=== PATIENT | female | born 1985 | race Caucasian/White ===

== ENCOUNTER → 2019-03-25 11:22 | Outpatient (CLI) | payer BC, SELFPAY ==
--- NOTE | 2019-03-25 11:25 | DI.RAD.S_ITS ---
PROCEDURE: XR CHEST 2V INDICATIONS: cough TECHNIQUE: 2 views of the chest were acquired. COMPARISON: None. FINDINGS: Surgical changes and devices: None. Lungs and pleura: Lungs are clear. No pleural effusions or pneumothorax. Mediastinum: Mediastinal contours are normal. Heart size is normal. Bones and chest wall: No suspicious bony abnormalities. Soft tissues appear unremarkable. IMPRESSION: No acute process. Dictated by: Nayana Prieto M.D. on 03/25/2019 at 11:42 Approved by: Nayana Prieto M.D. on 03/25/2019 at 11:42
== END ==
PROVIDERS: PCP Student in an Organized Health Care Education/Training Program; Visit Provider Physician Assistant
DX: R05 Cough (principal)
CPT/HCPCS: 71046

== ENCOUNTER 2019-03-31 16:02 | Emergency (ER) | payer BC, SELFPAY ==
[2019-03-31 16:06] VITALS: BP 172/108; PULSE 98; RESP 18; TEMP 36.8; O2SAT 100
[2019-03-31 17:30] LABS: Add Manual Diff / Slide Review NO; Basophils Absolute Auto 100 /uL (0-100); Basophils Percent Auto 0.9 % (0-2); Eosinophils Absolute Auto 300 /uL (0-450); Eosinophils Percent Auto 1.8 % (2-4); Hematocrit 43.1 % (36-46); Hemoglobin 14.6 g/dL (12.0-16.0); Lymphocytes Absolute Auto 3600 /uL (1100-4500); Lymphocytes Percent Auto 25.4 % (25-40); Mean Corpuscular HGB Conc 33.8 % (30-36); Mean Corpuscular Hemoglobin 28.4 PG (26-34); Monocytes Absolute Auto 1100 /uL (0-900); Monocytes Percent Auto 7.6 % (3-14); Neutrophils Absolute Auto 9100 /uL (1500-7000); Neutrophils Percent Auto 64.3 % (50-75); Platelet Count 347 X10^3/uL (150-400); Red Blood Cell Count 5.12 X10^6/uL (4.0-5.2); Red Cell Distribution Width 13.7 % (11.6-14.8); White Blood Cell Count 14.2 X10^3/uL (4.5-11.0)
[2019-03-31 17:38] LABS: INR 0.9 (0.9-1.3); Prothrombin Time 10.7 SECONDS (10.1-12.7)
[2019-03-31 17:41] LABS: PTT Partial Thromboplastin Tim 37 SECONDS (26.4-36.2)
[2019-03-31 17:42] LABS: Alanine Aminotransferase 32 IU/L (9-52); Albumin 4.4 g/dL (3.5-5.0); Albumin Globulin Ratio 1.3 (1.0-2.8); Alkaline Phosphatase 89 U/L (38-126); Aspartate Aminotransferase 30 IU/L (14-36); BUN Creatinine Ratio 21.3 (6-22); Bilirubin Total 0.6 mg/dL (0.2-1.3); Blood Urea Nitrogen 17 mg/dL (7-17); Calcium 10.1 mg/dL (8.4-10.2); Carbon Dioxide 27 mmol/L (22-32); Chloride 100 mmol/L (98-107); Estimated Glomerular Filt Rate > 60.0 mL/min (>60); Globulin 3.5 g/dL (1.7-4.1); Glucose 85 mg/dL (70-100); Lipase 118 U/L (23-300); Sodium 139 mmol/L (137-145); Total Protein 7.9 g/dL (6.3-8.2)
[2019-03-31 17:48] LABS: HEMOLYSIS 51 (0-50)
--- NOTE | 2019-03-31 18:14 | ED.ABDPAIN ---
HPI - Abdominal Pain General Chief Complaint: Abdominal Pain Stated Complaint: DIARRHEA ABD PAIN BACK PAIN FATIGUE Time Seen by Provider: 03/31/19 18:13 Source: patient and family Mode of arrival: ambulatory Limitations: no limitations History of Present Illness HPI narrative: 33-year-old female nonsmoker presents to the emergency department with her in the chief complaint of abdominal discomfort and diarrhea over the past few days. She feels fatigued and a bit out of it. She has recently been on antibiotics for pneumonia. She denies any blood in her stool. She denies fever or chills. She has not dizzy nor weak or lightheaded. Related Data Previous Rx's Medication Instructions Recorded ibuprofen 800 mg PO TIDP PRN #90 tab 11/08/17 ipratropium bromide 17 1 puff INHALATION QID PRN #12.9 10/21/18 mcg/actuation HFA aerosol inhaler gram amoxicillin 500 mg capsule 1,000 mg PO BID 10 Days #40 cap 03/25/19 azithromycin 250 mg tablet See Rx Instructions PO .COMPLEX #6 03/25/19 tab benzonatate 100 mg capsule 100 mg PO TID PRN #30 cap 03/25/19 lisinopril 5 mg PO DAILY #30 tab 03/31/19 Allergies Allergy/AdvReac Type Severity Reaction Status Date / Time morphine [MORPHINE] Allergy Severe swelling, Verified 03/31/19 16:09 and rash Review of Systems Constitutional Denies chills, Denies fever(s), Denies lethargy and Denies weakness Eyes Denies change in vision, Denies eye discharge, Denies irritation and Denies loss of vision ENT Ears, Nose, Mouth, and Throat: Denies change in voice, Denies neck pain and Denies sore throat Cardiovascular Denies chest pain, Denies irregular heart rhythm, Denies lightheadedness, Denies palpitations, Denies dyspnea, Denies dyspnea on exertion and Denies orthopnea Respiratory Denies cough, Denies dyspnea, Denies dyspnea on exertion and Denies wheezing Gastrointestinal Gastrointestinal: Denies abdominal pain, Denies change in bowel habits, Denies diarrhea, Denies nausea and Denies vomiting Genitourinary Denies hematuria, Denies flank pain, Denies urinary incontinence and Denies urinary urgency Musculoskeletal Denies neck pain Integumentary/Breasts Denies pruritus, Denies erythema, Denies rash and Denies wounds Neurologic Denies confusion, Denies loss of vision and Denies weakness Psychiatric Denies anxiety, Denies confusion, Denies depression, Denies homicidal ideation and Denies suicidal ideation Endocrine Denies palpitations Hematologic/Lymphatic Denies easy bruising Allergic/Immunologic Denies wheezing PFSH Social History Smoking Status: Never smoker Social History Smoking Status: Never smoker Exam Narrative Exam Narrative: GENERAL: [33] year old patient appears stated age. Well-nourished, well-developed patient, in mild distress. HEAD: Atraumatic. Normocephalic. EYES: Pupils equal round and reactive. Extraocular motions intact. No scleral icterus. No injection or drainage. ENT: Nose without bleeding, purulent drainage. Throat without erythema, tonsillar hypertrophy or exudate. Airway patent. NECK: Trachea midline. Non tender CARDIOVASCULAR: Regular rate and rhythm without murmurs, gallops, or rubs. RESPIRATORY: Clear to auscultation. Breath sounds equal bilaterally. No wheezes, rales, or rhonchi. GASTROINTESTINAL: Abdomen soft, non-tender, nondistended. EXTREMITIES: No edema or joint tenderness. BACK: Nontender without deformity or crepitance. No flank tenderness. NEURO: AOx3. SKIN: No rash or erythema of visible areas Initial Vital Signs Initial Vital Signs: Vital Signs Temperature 98.3 F 03/31/19 16:06 Pulse Rate 98 H 03/31/19 16:06 Respiratory Rate 18 03/31/19 16:06 Blood Pressure 172/108 H 03/31/19 16:06 Pulse Oximetry 100 03/31/19 16:06 Course Orders Ordered: Discontinued Medications Sodium Chloride (Normal Saline 0.9%) 1,000 mls @ 1,000 mls/hr IV BOLUS ONE Stop: 03/31/19 19:32 Last Infusion: 03/31/19 21:38 Dose: 0 mls/hr Admin: 03/31/19 18:55 Dose: 1,000 mls/hr Lisinopril (Zestril) 10 mg PO NOW ONE Stop: 03/31/19 21:28 Last Admin: 03/31/19 21:57 Dose: 10 mg Ondansetron HCl (Zofran) 4 mg IV NOW ONE Stop: 03/31/19 17:04 Last Admin: 03/31/19 17:25 Dose: Not Given Reevaluation(s) Reevaluation #1: Patient feeling better after above-stated therapies Vital Signs - 8 hr 03/31/19 21:57 Pulse Rate 98 H Blood Pressure 159/102 H MDM - Abdominal Pain Lab Data Result diagrams: 03/31/19 17:23 03/31/19 17:23 Lab Results 03/31/19 03/31/19 03/31/19 Range/Units 17:23 17:23 17:23 WBC 14.2 H (4.5-11.0) X10^3/uL RBC 5.12 (4.0-5.2) X10^6/uL Hgb 14.6 (12.0-16.0) g/dL Hct 43.1 (36-46) % MCV 84.0 (80-100) fL MCH 28.4 (26-34) PG MCHC 33.8 (30-36) % RDW 13.7 (11.6-14.8) % Plt Count 347 (150-400) X10^3/uL Neut % (Auto) 64.3 (50-75) % Lymph % (Auto) 25.4 (25-40) % [place] % (Auto) 7.6 (3-14) % Eos % (Auto) 1.8 L (2-4) % Baso % (Auto) 0.9 (0-2) % Neut # (Auto) 9100 H (3748-4721) /uL Lymph # (Auto) 3600 (7871-3247) /uL [place] # (Auto) 1100 H (0-900) /uL Eos # (Auto) 300 (0-450) /uL Baso # (Auto) 100 (0-100) /uL PT 10.7 (10.1-12.7) SECONDS INR 0.9 (0.9-1.3) APTT 37 H (26.4-36.2) SECONDS Sodium 139 (137-145) mmol/L Potassium 4.0 (3.4-5.1) mmol/L Chloride 100 (98-107) mmol/L Carbon Dioxide 27 (22-32) mmol/L BUN 17 (7-17) mg/dL Creatinine 0.80 (0.52-1.04) mg/dL Estimated GFR > 60.0 (>60) mL/min BUN/Creatinine Ratio 21.3 (6-22) Glucose 85 (70-100) mg/dL Calcium 10.1 (8.4-10.2) mg/dL Total Bilirubin 0.6 (0.2-1.3) mg/dL AST 30 (14-36) IU/L ALT 32 (9-52) IU/L Alkaline Phosphatase 89 (38-126) U/L Total Protein 7.9 (6.3-8.2) g/dL Albumin 4.4 (3.5-5.0) g/dL Globulin 3.5 (1.7-4.1) g/dL Albumin/Globulin Ratio 1.3 (1.0-2.8) Lipase 118 (23-300) U/L Point of care testing: Point of Care Testing Test Results Negative Urine Dip Bedside Urine Glucose Negative Bedside Urine Bilirubin - Negative Bedside Urine Ketone - Negative Urine Specific [place] 1.010 Bedside Urine Occult Blood - Negative Bedside Urine pH 6.0 Bedside Urine Protein - Negative Bedside Urine Urobilinogen - Negative Bedside Urine Nitrite - Negative Bedside Urine Leukocytes - Negative Esterase MDM Narrative Medical decision making narrative: Multiple etiologies for patient's symptoms considered including: [Infectious diarrhea versus C diff versus hypertensive urgency versus other] Patient's symptoms improved or duration of stay with above-stated therapies. Findings and discharge diagnosis discussed with patient/family followed by verbalization of understanding Return precautions discussed with patient/family whom verbalize understanding. Discharge Plan Departure Patient Disposition: Home Clinical Impression: Diarrhea Qualifiers: Diarrhea type: unspecified type Qualified Code(s): R19.7 - Diarrhea, unspecified Hypertension Qualifiers: Hypertension type: unspecified Qualified Code(s): I10 - Essential (primary) hypertension Discharge Date/Time: 03/31/19 22:15 Interventions: ED Discharge Assessment Last Done: 03/31/19 22:14 Instructions: Diarrhea, DI for Abdominal Pain-Adult Activity Restrictions/Additional Instructions: 1. Drink plenty of fluids with frequent small sips. 2. For the next 24 hours a clear liquid diet is advised. After that please employ a brat diet which would include bananas, rice, apples, toast. 3. Please take medications as directed. Including over the counter probiotics 4. Please follow-up with your doctor in the next 1-2 days. Call the office for an appointment. 5. Please return to the emergency Department for any worsening or persistent symptoms, such as increasing pain or fever. Prescriptions: New lisinopril 10 mg tablet 5 mg PO DAILY Qty: 30 RF: 0 No Action Atrovent HFA 17 mcg/actuation HFA aerosol inhaler 1 puff INHALATION QID PRN (Reason: shortness of breath or wheezing) Qty: 12.9 RF: 0 benzonatate 100 mg capsule 100 mg PO TID PRN (Reason: cough) Qty: 30 RF: 0 amoxicillin 500 mg capsule 1,000 mg PO BID 10 Days Qty: 40 RF: 0 azithromycin 250 mg tablet See Rx Instructions PO .COMPLEX Qty: 6 RF: 0 ibuprofen 800 MG tablet 800 mg PO TIDP PRNQty: 90 RF: 3 Referrals: Evelina Hurtado MD [Primary Care Provider] -
[2019-03-31] MEDS: SODIUM CHLORIDE 0.9% 1,000 ML 1000 ML IV (18:55)
[2019-03-31 19:19] VITALS: BP 171/107; PULSE 100; RESP 18; O2SAT 97
[2019-03-31 20:57] VITALS: BP 154/107; PULSE 89; O2SAT 98
[2019-03-31 21:57] VITALS: BP 159/102; PULSE 98
[2019-03-31] MEDS: LISINOPRIL 10 MG TABLET PO (21:57)
== END 2019-03-31 22:15 | disposition home or self-care (01) ==
PROVIDERS: Emergency Medicine; Emergency Provider Emergency Medicine; PCP Student in an Organized Health Care Education/Training Program
DX: R19.7 Diarrhea, unspecified (principal); R10.9 Unspecified abdominal pain; I10 Essential (primary) hypertension
CPT/HCPCS: 36591; 80053; 81003; 81025; 83690; 85025; 85610; 85730; 93005; 93010; 96360; 96361; 99283; 99284

== ENCOUNTER → 2019-04-01 09:12 | Outpatient (CLI) | payer BC, SELFPAY ==
[2019-04-01 12:34] LABS: Adenovirus F 40/41 Not Detected (Not Detect); Astrovirus Not Detected (Not Detect); Campylobacter Not Detected (Not Detect); Clostridium difficile toxin AB Not Detected (Not Detect); Cryptosporidium Not Detected (Not Detect); Cyclospora cayetanensis Not Detected (Not Detect); Entamoeba histolytica Not Detected (Not Detect); Enteroaggregative E.coli Not Detected (Not Detect); Enteropathogenic E.coli Not Detected (Not Detect); Enterotoxigenic E.coli It/st Not Detected (Not Detect); Giardia lamblia Not Detected (Not Detect); Norovirus GI/GII Not Detected (Not Detect); Plesiomonsa shigelloides Not Detected (Not Detect); Rotavirus A Not Detected (Not Detect); Salmonella Not Detected (Not Detect); Shiga-like toxin-prod E.coli Not Detected (Not Detect); Shigella/Enteroinvasive E.coli Not Detected (Not Detect); Vibrio Not Detected (Not Detect); Vibrio cholerae Not Detected (Not Detect); Yersinia enterocolitica Not Detected (Not Detect)
== END ==
PROVIDERS: PCP Student in an Organized Health Care Education/Training Program; Visit Provider Emergency Medicine
DX: Z11.59 Encounter for screening for other viral diseases (principal)
CPT/HCPCS: 87507

== ENCOUNTER → 2019-04-17 09:28 | Outpatient (CLI) | payer BC, SELFPAY ==
--- NOTE | 2019-04-17 | DI.RAD.S_ITS ---
PROCEDURE: XR CHEST 2V INDICATIONS: PRODUCTIVE COUGH/BODY ACHES TECHNIQUE: 2 views of the chest were acquired. COMPARISON: , CR, XR CHEST 2V, 03/25/2019, 11:27. FINDINGS: Surgical changes and devices: Cholecystectomy clips. Lungs and pleura: Lungs are clear. No consolidation. No pleural effusions or pneumothorax. Mediastinum: Mediastinal contours are normal. Heart size is normal. Bones and chest wall: No suspicious bony abnormalities. Soft tissues appear unremarkable. IMPRESSION: No consolidation seen to suggest pneumonia. Dictated by: Ap Gomez M.D. on 04/17/2019 at 10:06 Approved by: Ap Gomez M.D. on 04/17/2019 at 10:07
== END ==
PROVIDERS: Visit Provider Student in an Organized Health Care Education/Training Program
DX: R05 Cough (principal); R52 Pain, unspecified
CPT/HCPCS: 71046

== ENCOUNTER → 2019-05-30 07:42 | Outpatient (CLI) | payer BC, SELFPAY ==
--- NOTE | 2019-05-30 | DI.US.S_ITS ---
PROCEDURE: US ABDOMEN COMPLETE INDICATIONS: LOWER ABDOMINAL PAIN, UNSPECIFIED. Nephrolithiasis and cholecystectomy. TECHNIQUE: Real-time scanning was performed of the abdominal and retroperitoneal organs, with image documentation. COMPARISON: None. FINDINGS: Liver: Liver is normal in size and homogeneous in echotexture, diffusely prominently hyperechoic consistent with fatty infiltration. Gallbladder: Surgically absent Biliary ducts: Intrahepatic bile ducts are non-dilated. Extrahepatic bile duct caliber measures 4.0 mm. Normal is 6-7 mm or less in diameter, or 10 mm or less post-cholecystectomy. Pancreas: Visualized portions of the pancreas are sonographically normal. Spleen: Spleen is normal in size and homogeneous in echotexture. Kidneys: Kidneys are normal in size and echotexture. Right kidney measures 11.5 cm long; left kidney measures 11.8 cm long. No hydronephrosis or nephrolithiasis. No solid masses. The medullary portion of the renal cortex is relatively hyperechoic without shadowing, most consistent with medullary sponge kidney morphology. Renal cortical thinning appears present, measuring only 8 mm on the left and a 7 mm on the right. Aorta: Visualized aorta is normal in caliber at less than 3 cm. Iliacs: Proximal common iliac arteries are normal in caliber at less than 2.5 cm. IVC: Intrahepatic inferior vena cava is patent. Miscellaneous: No free abdominal fluid. At the midline of the pelvis during scanning it was noted that tenderness was more prominent slightly to the left than the right and at the left ovary a 2.1 x 2.0 x 2.2 cm hypoechoic area with internal echotexture is present associated with this tenderness. This likely represents a complex left ovarian cyst. IMPRESSION: 1. Prominently hyperechoic liver echotexture most consistent with relatively extensive fatty infiltration throughout the liver. Evaluation for etiology of hepatic steatosis is recommended. 2. Relative hyperechoic echotexture along the medullary. Margins consistent with medullary sponge kidney morphology. Renal cortical thinning bilaterally as noted above. Currently no hydronephrosis or nephrolithiasis is found. 3. There is a hypoechoic tender 2.2 cm structure at the left ovary, partially visualized by transabdominal scanning. Transvaginal complete pelvic ultrasound likely is warranted in this clinical circumstance of reported low abdomen/pelvis pain and identification of this abnormality. It may represent a hemorrhagic ovarian cyst in evolution. Therefore, followup in 6 weeks is recommended. Dictated by: Bora Carter M.D. on 05/30/2019 at 9:10 Approved by: Bora Carter M.D. on 05/30/2019 at 9:17
== END ==
PROVIDERS: Visit Provider Student in an Organized Health Care Education/Training Program
DX: R10.30 Lower abdominal pain, unspecified (principal); Z90.49 Acquired absence of other specified parts of digestive tract
CPT/HCPCS: 76700

== ENCOUNTER → 2019-06-13 09:53 | Outpatient (CLI) | payer BC, SELFPAY ==
--- NOTE | 2019-06-13 | DI.RAD.S_ITS ---
PROCEDURE: XR CHEST 2V INDICATIONS: CHEST PAIN TECHNIQUE: 2 views of the chest were acquired. COMPARISON: [facility], CR, XR CHEST 2V, 04/17/2019, 9:42. FINDINGS: Surgical changes and devices: None. Lungs and pleura: Lungs are clear. No pleural effusions or pneumothorax. Mediastinum: Mediastinal contours are normal. Heart size is normal. Bones and chest wall: No suspicious bony abnormalities. Soft tissues appear unremarkable. IMPRESSION: No acute disease Dictated by: Nick Almazan M.D. on 06/13/2019 at 11:15 Approved by: Nick Almazan M.D. on 06/13/2019 at 11:16
== END ==
PROVIDERS: PCP Student in an Organized Health Care Education/Training Program; Visit Provider Student in an Organized Health Care Education/Training Program
DX: R07.9 Chest pain, unspecified (principal)
CPT/HCPCS: 71046

== ENCOUNTER → 2019-07-07 15:18 | Outpatient (CLI) | payer BC, SELFPAY ==
--- NOTE | 2019-07-07 16:24 | PM.TREADMILL ---
Cardiac Stress Test Report Referral & Results Date Patient Seen: 07/07/19 Requesting provider: Evelina Hurtado Indication: Chest pain shortness of breath Rest ECG: Unremarkable Procedure Note: Today following both written and verbal informed consent, the patient was exercised according to a standard [place] protocol. The patient exercised for a total of 9 minutes 27 seconds achieving a maximum heart rate of 174. Patient's maximum systolic blood pressure was 215. This was an estimated 10.1 MET's. There are no ST-T segment changes Patient was somewhat quickly tachycardic in overall peak blood pressure was excessive Functional aerobic impairment rated 0 on the active scale or-10% on the sedentary scale Impression: No evidence of ischemia. Normal to slightly better than average exercise capacity Please note: Actual ECG tracings can be found in the PACS system.
== END ==
PROVIDERS: PCP Student in an Organized Health Care Education/Training Program; Visit Provider Student in an Organized Health Care Education/Training Program
DX: R07.9 Chest pain, unspecified (principal); R06.02 Shortness of breath
CPT/HCPCS: 93016; 93017; 93018

== ENCOUNTER 2019-08-14 11:17 | Emergency (ER) | payer BC, SELFPAY ==
[2019-08-14 11:48] VITALS: BP 176/118; PULSE 90; RESP 100; TEMP 36.5; O2SAT 100; BMI 35.2
[2019-08-14 13:00] VITALS: BP 153/101; PULSE 81; O2SAT 100
[2019-08-14] MEDS: SODIUM CHLORIDE 0.9% 1,000 ML 150 ML IV (13:05)
[2019-08-14] MEDS: ONDANSETRON 4 MG/2 ML INJ IV (13:05)
[2019-08-14] MEDS: KETOROLAC 60 MG/2 ML VIAL 30 MG IV (13:05)
[2019-08-14 13:06] LABS: Add Manual Diff / Slide Review NO; Basophils Absolute Auto 100 /uL (0-100); Basophils Percent Auto 0.5 % (0-2); Eosinophils Absolute Auto 100 /uL (0-450); Eosinophils Percent Auto 1.4 % (2-4); Hemoglobin 13.3 g/dL (12.0-16.0); Lymphocytes Absolute Auto 2100 /uL (1100-4500); Lymphocytes Percent Auto 20.2 % (25-40); Mean Corpuscular HGB Conc 34.1 % (30-36); Mean Corpuscular Hemoglobin 28.5 PG (26-34); Mean Corpuscular Volume 83.4 fL (80-100); Monocytes Absolute Auto 700 /uL (0-900); Monocytes Percent Auto 6.9 % (3-14); Neutrophils Absolute Auto 7500 /uL (1500-7000); Platelet Count 285 X10^3/uL (150-400); Red Blood Cell Count 4.68 X10^6/uL (4.0-5.2); Red Cell Distribution Width 13.2 % (11.6-14.8); White Blood Cell Count 10.5 X10^3/uL (4.5-11.0)
[2019-08-14 13:09] LABS: Amorphous Sediment Urine 1+; Bacteria Urine Few (2-10); Culture Indicated Urine Specimen Cultured; RBC Urine 1-5/HPF (0-5/HPF); Squamous Epithelial Cell Urine 0-1 /HPF (0-5/HPF); WBC Urine 5-10/HPF (0-5/HPF)
[2019-08-14 13:13] LABS: Alanine Aminotransferase 28 IU/L (<35); Albumin 4.4 g/dL (3.5-5.0); Albumin Globulin Ratio 1.5 (1.0-2.8); Alkaline Phosphatase 74 U/L (38-126); Aspartate Aminotransferase 26 IU/L (14-36); BUN Creatinine Ratio 12.5 (6-22); Bilirubin Total 0.3 mg/dL (0.2-1.3); Blood Urea Nitrogen 10 mg/dL (7-17); Calcium 9.6 mg/dL (8.4-10.2); Carbon Dioxide 31 mmol/L (22-32); Chloride 102 mmol/L (98-107); Estimated Glomerular Filt Rate > 60.0 mL/min (>60); Glucose 83 mg/dL (70-100); HEMOLYSIS < 15 (0-50); Lipase 44 U/L (23-300); Potassium 4.2 mmol/L (3.4-5.1); Sodium 139 mmol/L (137-145); Total Protein 7.4 g/dL (6.3-8.2)
--- NOTE | 2019-08-14 13:53 | DI.CT.S_ITS ---
PROCEDURE: CT ABDOMEN PELVIS W CON INDICATIONS: B flank pain, RLQ, LLQ pain, hx multiple stones, L ovarian cyst TECHNIQUE: After the administration of intravenous contrast, 5 mm thick sections acquired from the diaphragm to the symphysis. 5 mm coronal and sagittal reformats were acquired. For radiation dose reduction, the following was used: automated exposure control, adjustment of mA and/or kV according to patient size. COMPARISON: [facility], CT, ABDOMEN/PELVIS WITH CONTRAST, 03/29/2016, 16:04. FINDINGS: Image quality: Excellent. ABDOMEN: Lung bases: Chronic left lateral lower lung atelectasis/scar. Lung bases are otherwise clear. Heart size is normal. Solid organs: Liver is normal in size and enhancement. Gallbladder is surgically absent. Biliary system is non dilated. Pancreas enhances normally. Spleen is normal in size and enhancement. No adrenal nodules. Kidneys demonstrate normal size and enhancement, without hydronephrosis. Punctate right upper and right lower pole calculi. Peritoneum and bowel: The appendix is not visible. The small bowel loops are largely decompressed. Minor mesenteric hyperemia diffusely. No focal inflammatory changes. No suspicious bowel wall thickening. Normal-sized mesenteric lymph nodes are visible. Bowel loops demonstrate normal wall thickness and caliber. No free fluid or air. Nodes and vessels: Slight prominence of bilateral ovarian veins. No retroperitoneal or mesenteric adenopathy by size criteria. Aorta and inferior vena cava are normal in size. Miscellaneous: No ventral hernias. No ureteral calcifications. PELVIS: Genitourinary: Bladder wall thickness is normal. Uterus and ovaries have normal appearance. Miscellaneous: No inguinal hernias or adenopathy. Bones: No suspicious bony lesions. No vertebral body compression fractures. IMPRESSION: 1. No evidence of obstructive uropathy. 2. Nonobstructing small right intrarenal calcifications. 3. Mild bilateral ovarian vein prominence. This may be physiologic or indicate pelvic congestion syndrome. The rest of the pelvic vasculature appears normal caliber. 4. Minor hyperemic changes in the mesentery may indicate gastroenteritis. No evidence of bowel obstruction. Dictated by: Hue Lux M.D. on 08/14/2019 at 14:36 Approved by: Hue Lux M.D. on 08/14/2019 at 14:46
[2019-08-14 14:00] VITALS: BP 152/83; PULSE 73; O2SAT 100
[2019-08-14 15:00] VITALS: BP 141/91; PULSE 70; O2SAT 100
[2019-08-14 16:25] VITALS: BP 147/81; PULSE 63; RESP 16; O2SAT 100
--- NOTE | 2019-08-15 00:31 | ED_ITS ---
HPI - Abdominal Pain <EBONY Pop - Last Filed: 08/15/19 00:54> General Chief Complaint: Abdominal Pain Stated Complaint: abdominal/back pain,nausea, bp high Time Seen by Provider: 08/14/19 12:24 Source: patient Mode of arrival: Ambulatory Limitations: no limitations History of Present Illness HPI narrative: This is a 34-year-old female, nonsmoker, who presents to ED with chief complain of bilateral low back pain and low abdominal discomfort since 5 days ago. Patient reports discomfort improved after a couple of day and experiencing recurring discomfort since yesterday. Patient describes as constant, pressure and sharp worsen right-sided flank with mild nausea without vomiting, diarrhea, fever or chills. Patient reports her pain as 8/10. 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 Since she has been changing her diet with low oxalate food, she noticed last frequent kidney stone incidents. She reports urinary urgency and denies hematuria, dysuria, burning with urination. Patient had taken hydrocodone which she had previous for a couple of days. Since yesterday patient has been taking ibuprofen 800 mg 2 to 3 times a day. LMP 07/20/2019 and it's usually irregular due to PCOS. She also reports history of L side ovarian cyst which is to follow-up. Related Data Previous Rx's Medication Instructions Recorded ibuprofen 800 mg PO TIDP PRN #90 tab 11/08/17 ipratropium bromide 17 1 puff INHALATION QID PRN #12.9 10/21/18 mcg/actuation HFA aerosol inhaler gram lisinopril 5 mg PO DAILY #30 tab 03/31/19 Allergies Allergy/AdvReac Type Severity Reaction Status Date / Time morphine [MORPHINE] Allergy Severe swelling, Verified 03/31/19 16:09 and rash Review of Systems <EBONY Pop - Last Filed: 08/15/19 00:54> Review of Systems Narrative: General: Denies fever, chills, fatigue, malaise, sweats. HEENT: Denies sinus pain, ear pain, sore throat, difficulty swallowing, dizziness. Respiratory: Denies dyspnea, cough, wheezing, hemoptysis, sputum. Cardiovascular: Denies chest pain, palpitations, orthopnea, edema. Gastrointestinal: Mild nausea. Denies vomiting, abdominal pain, diarrhea, constipation, melena. : See HPI Musculoskeletal: Denies weakness, joint pain or bony pain. Skin: Denies rash, skin lesions, or other. Neurologic: Denies weakness, headache, numbness, change in speech, confusion, seizures, incoordination. Psychiatric: No concerning psychosocial issues. 12-point review of systems is negative except for those stated above. Patient History <EBONY Pop - Last Filed: 08/15/19 00:54> Medical History NAFLD (nonalcoholic fatty liver disease) (Acute) PCOS (polycystic ovarian syndrome) (Acute) Sponge kidney (Acute) Social History Smoking Status: Never smoker Smoking Status: Never smoker alcohol intake frequency: 0-2 drinks per day Substance Use Type: does not use Exam <EBONY Pop - Last Filed: 08/15/19 00:54> Narrative Exam Narrative: GEN: Alert, oriented x 3, well appearing and nourished, and in no acute distress. Head: Normal cephalic, atraumatic. No scalp or temporal tenderness, palpable mass or rash. EYES: Pupils are equal, round, and reactive to light and accommodation. Extraocular muscles are intact bilaterally. There is no subconjunctival hemorrhage, exudate and sclera non-icteric. ENT: Bilateral auditory canals and tympanic membranes clear. Hearing grossly intact. Nose without bleeding, purulent discharge or deviation. Facial sinuses nontender to palpate. Mucous membrane moist, no mucosal lesion. Throat without erythema, tonsillar hypertrophy or exudate. Uvula in midline, airway patent. Neck: Trachea in midline. No JVD, non-tender without lymphadenopathy. No masses or thyroid megaly. Supple, non-tender and no meningeal signs. CARDIAC: Normal regular rate and rhythm without murmurs, gallops, or rubs. No chest wall tenderness. No peripheral edema, cyanosis or pallor. Capillary refill is less than 2 seconds. RESPIRATORY: Lungs are clear to auscultate bilaterally. No cough, wheezes, rales, or rhonchi. No stridor, respiratory distress, increase work of breathing, or accessary muscle used. ABD: Mild tenderness to palpate in left lower quadrant, right lower quadrant, left upper quadrant. Abdomen soft and non-distended. No guarding or rebound tenderness to palpate. Bowel sounds are normal in all 4 quadrants. There is no palpable masses or organomegaly. EXT: Full painless ROM of all extremities with no loss of sensation, strength, effusion or edema. SKIN: Warm, dry, normal color for patient. No erythema, lesions or rash over visible areas. BACK: Nontender without deformity or crepitance. Bilateral flank tenderness to percuss. NEUROLOGICAL: Alert and oriented to place, time and person. Sensation and motor function intact bilaterally. No facial droops, dysphasia. PSYCHIATRIC: Good judgement and reason, without hallucinations, abnormal affect or abnormal behaviors during the examination. Initial Vital Signs Initial Vital Signs: Vital Signs Temperature 97.7 F 08/14/19 11:48 Pulse Rate 90 08/14/19 11:48 Respiratory Rate 100 H 08/14/19 11:48 Blood Pressure 176/118 H 08/14/19 11:48 Pulse Oximetry 100 08/14/19 11:48 <Soledad aDsh DO - Last Filed: 08/15/19 08:56> Initial Vital Signs Initial Vital Signs: Vital Signs Temperature 97.7 F 08/14/19 11:48 Pulse Rate 90 08/14/19 11:48 Respiratory Rate 100 H 08/14/19 11:48 Blood Pressure 176/118 H 08/14/19 11:48 Pulse Oximetry 100 08/14/19 11:48 Scores <EBONY Pop - Last Filed: 08/15/19 00:54> GCS Ring[place] coma scale eye opening: Spontaneous [place] coma scale verbal response: Orientated Renee coma scale motor response: Obey commands Ringoes coma scale total score: 15 Course <EBONY Pop - Last Filed: 08/15/19 00:54> Orders Ordered: Discontinued Medications Sodium Chloride (Normal Saline 0.9%) 1,000 mls @ 150 mls/hr IV CONT KELLY Last Infusion: 08/14/19 16:30 Dose: 0 mls/hr Documented by: Infusion: 08/14/19 16:27 Dose: 150 mls/hr Documented by: [email or web address] Admin: 08/14/19 13:05 Dose: 150 mls/hr Documented by: ARETHA Ketorolac Tromethamine (Toradol) 30 mg IV NOW ONE Stop: 08/14/19 13:02 Last Admin: 08/14/19 13:05 Dose: 30 mg Documented by: ARETHA Ondansetron HCl (Zofran) 4 mg IV NOW ONE Stop: 08/14/19 13:02 Last Admin: 08/14/19 13:05 Dose: 4 mg Documented by: ARETHA <Soledad Dash DO - Last Filed: 08/15/19 08:56> Orders Ordered: Discontinued Medications Sodium Chloride (Normal Saline 0.9%) 1,000 mls @ 150 mls/hr IV CONT KELLY Last Infusion: 08/14/19 16:30 Dose: 0 mls/hr Documented by: Infusion: 08/14/19 16:27 Dose: 150 mls/hr Documented by: Admin: 08/14/19 13:05 Dose: 150 mls/hr Documented by: ARETHA Ketorolac Tromethamine (Toradol) 30 mg IV NOW ONE Stop: 08/14/19 13:02 Last Admin: 08/14/19 13:05 Dose: 30 mg Documented by: ARETHA Ondansetron HCl (Zofran) 4 mg IV NOW ONE Stop: 08/14/19 13:02 Last Admin: 08/14/19 13:05 Dose: 4 mg Documented by: ARETHA MDM - Abdominal Pain <EBONY Pop - Last Filed: 08/15/19 00:54> Differential Diagnosis Differential diagnosis: Likely abdominal pain, acute appendicitis, calculus of kidney, diverticulitis and other (Ovarian cyst, ovarian torsion) Medical Records Attestation: I reviewed the patient's medical records. Lab Data Attestation: I reviewed the patient's lab results. Result diagrams: 08/14/19 12:53 08/14/19 12:53 Labs: Lab Results 08/14/19 08/14/19 08/14/19 Range/Units 11:52 12:53 12:53 WBC 10.5 (4.5-11.0) X10^3/uL RBC 4.68 (4.0-5.2) X10^6/uL Hgb 13.3 (12.0-16.0) g/dL Hct 39.0 (36-46) % MCV 83.4 (80-100) fL MCH 28.5 (26-34) PG MCHC 34.1 (30-36) % RDW 13.2 (11.6-14.8) % Plt Count 285 (150-400) X10^3/uL Neut % (Auto) 71.0 (50-75) % Lymph % (Auto) 20.2 L (25-40) % [place] % (Auto) 6.9 (3-14) % Eos % (Auto) 1.4 L (2-4) % Baso % (Auto) 0.5 (0-2) % Neut # (Auto) 7500 H (9779-0225) /uL Lymph # (Auto) 2100 (5563-0710) /uL [place] # (Auto) 700 (0-900) /uL Eos # (Auto) 100 (0-450) /uL Baso # (Auto) 100 (0-100) /uL Sodium 139 (137-145) mmol/L Potassium 4.2 (3.4-5.1) mmol/L Chloride 102 (98-107) mmol/L Carbon Dioxide 31 (22-32) mmol/L BUN 10 (7-17) mg/dL Creatinine 0.80 (0.52-1.04) mg/dL Estimated GFR > 60.0 (>60) mL/min BUN/Creatinine Ratio 12.5 (6-22) Glucose 83 (70-100) mg/dL Calcium 9.6 (8.4-10.2) mg/dL Total Bilirubin 0.3 (0.2-1.3) mg/dL AST 26 (14-36) IU/L ALT 28 (<35) IU/L Alkaline Phosphatase 74 (38-126) U/L Total Protein 7.4 (6.3-8.2) g/dL Albumin 4.4 (3.5-5.0) g/dL Globulin 3.0 (1.7-4.1) g/dL Albumin/Globulin Ratio 1.5 (1.0-2.8) Lipase 44 (23-300) U/L Urine RBC 1-5/hpf (0-5/HPF) Urine WBC 5-10/hpf H (0-5/HPF) Ur Squamous Epith Cells 0-1 /hpf (0-5/HPF) Amorphous Sediment 1+ Urine Bacteria Few (2-10) H (None) Ur Culture Indicated? Specimen cultured Point of care testing: Point of Care Testing Test Results Negative Urine Dip Bedside Urine Glucose Negative Bedside Urine Bilirubin - Negative Bedside Urine Ketone - Negative Urine Specific [place] 1.015 Bedside Urine Occult Blood +/- Bedside Urine pH 8.0 Bedside Urine Protein - Negative Bedside Urine Urobilinogen - Negative Bedside Urine Nitrite - Negative Bedside Urine Leukocytes + [address] scan - abdomen/pelvis: Radiologist's Impression: [address] [address] [address] Scan Report Signed Patient: Kathleen Landrum [facility]#: [id number] : 1985Acct:[id number] Age/Sex: 34 / FDate of Service: 08/14/19 Loc: ED Accession Number: [id number] Procedure: CT abdomen pelvis w con Ordering Provider: Josias Grijalva PROCEDURE: CT ABDOMEN PELVIS W CON INDICATIONS: B flank pain, RLQ, LLQ pain, hx multiple stones, L ovarian cyst TECHNIQUE: After the administration of intravenous contrast, 5 mm thick sections acquired from the diaphragm to the symphysis. 5 mm coronal and sagittal reformats were acquired. For radiation dose reduction, the following was used: automated exposure control, adjustment of mA and/or kV according to patient size. COMPARISON: [facility], CT, ABDOMEN/PELVIS WITH CONTRAST, 03/29/2016, 16:04 . FINDINGS: Image quality: Excellent. ABDOMEN: Lung bases: Chronic left lateral lower lung atelectasis/scar. Lung bases are otherwise clear. Heart size is normal. Solid organs: Liver is normal in size and enhancement. Gallbladder is surgically absent. Biliary system is non dilated. Pancreas enhances normally. Spleen is normal in size and enhancement. No adrenal nodules. Kidneys demonstrate normal size and enhancement, without hydronephrosis. Punctate right upper and right lower pole calculi. Peritoneum and bowel: The appendix is not visible. The small bowel loops are largely decompressed. Minor mesenteric hyperemia diffusely. No focal inflammatory changes. No suspicious bowel wall thickening. Normal-sized mesenteric lymph nodes are visible. Bowel loops demonstrate normal wall thickness and caliber. No free fluid or air. Nodes and vessels: Slight prominence of bilateral ovarian veins. No retroperitoneal or mesenteric adenopathy by size criteria. Aorta and inferior vena cava are normal in size. Miscellaneous: No ventral hernias. No ureteral calcifications. PELVIS: Genitourinary: Bladder wall thickness is normal. Uterus and ovaries have normal appearance. Miscellaneous: No inguinal hernias or adenopathy. Bones: No suspicious bony lesions. No vertebral body compression fractures. IMPRESSION: 1. No evidence of obstructive uropathy. 2. Nonobstructing small right intrarenal calcifications. 3. Mild bilateral ovarian vein prominence. This may be physiologic or indicate pelvic congestion syndrome. The rest of the pelvic vasculature appears normal caliber. 4. Minor hyperemic changes in the mesentery may indicate gastroenteritis. No evidence of bowel obstruction. Dictated by: Hue Lux M.D. on 08/14/2019 at 14:36 Approved by: Hue Lux M.D. on 08/14/2019 at 14:46 MDM Narrative Medical decision making narrative: This is a 34-year-old female who presents to ED with bilateral flank pain with intermittent bilateral lower abdominal d iscomfort with mild nausea since 6 days ago. Patient denies fever, chills, vomiting. Patient has significant history of kidney stones in the past and ovarian cyst in left side. Abdominal physical exam appreciated bilateral lower abdominal discomfort by palpation and bilateral flank pain. U hCG was negative for . POC urine test showed occult blood, urine leukocytes esterase without nitrites and urine is pending for culture. CBC, chemistry test or unremarkable today. CT of abdomen/pelvis showed small right intrarenal calcifications, no obstructive uropathy, mild bilateral ovarian vein prominence indicating pelvic congestion syndrome and minor hyperemic changes in mesentery likely indicating gastroenteritis. Patient's vital signs has improved and afebrile after patient was treated with IV Toradol, Zofran and IV fluid and pain mildly improved. Findings were shared with the patient. Patient declined Zofran to go home with. Advised to take [id number] Tylenol and or Motrin as needed for discomfort. Return precautions were discussed with the patient and advised to follow up with PCP for follow-up ovarian cyst ultrasound since this is better modality to evaluate ovarian cyst and verbalized understanding and agrees with the treatment plan. <Soledad Dash, DO - Last Filed: 08/15/19 08:56> Lab Data Labs: Lab Results 08/14/19 08/14/1908/14/19 Range/Units 11:52 12:53 12:53 WBC 10.5 (4.5-11.0) X10^3/uL RBC 4.68 (4.0-5.2) X10^6/uL Hgb 13.3 (12.0-16.0) g/dL Hct 39.0 (36-46) % MCV 83.4 (80-100) fL MCH 28.5 (26-34) PG MCHC 34.1 (30-36) % RDW 13.2 (11.6-14.8) % Plt Count 285 (150-400) X10^3/uL Neut % (Auto) 71.0 (50-75) % Lymph % (Auto) 20.2 L (25-40) % [place] % (Auto) 6.9 (3-14) % Eos % (Auto) 1.4 L (2-4) % Baso % (Auto) 0.5 (0-2) % Neut # (Auto) 7500 H (7037-7196) /uL Lymph # (Auto) 2100 (6553-1720) /uL [place] # (Auto) 700 (0-900) /uL Eos # (Auto) 100 (0-450) /uL Baso # (Auto) 100 (0-100) /uL Sodium 139 (137-145) mmol/L Potassium 4.2 (3.4-5.1) mmol/L Chloride 102 (98-107) mmol/L Carbon Dioxide 31 (22-32) mmol/L BUN 10 (7-17) mg/dL Creatinine 0.80 (0.52-1.04) mg/dL Estimated GFR > 60.0 (>60) mL/min BUN/Creatinine Ratio 12.5 (6-22) Glucose 83 (70-100) mg/dL Calcium 9.6 (8.4-10.2) mg/dL Total Bilirubin 0.3 (0.2-1.3) mg/dL AST 26 (14-36) IU/L ALT 28 (<35) IU/L Alkaline Phosphatase 74 (38-126) U/L Total Protein 7.4 (6.3-8.2) g/dL Albumin 4.4 (3.5-5.0) g/dL Globulin 3.0 (1.7-4.1) g/dL Albumin/Globulin Ratio 1.5 (1.0-2.8) Lipase 44 (23-300) U/L Urine RBC 1-5/hpf (0-5/HPF) Urine WBC 5-10/hpf H (0-5/HPF) Ur Squamous Epith Cells 0-1 /hpf (0-5/HPF) Amorphous Sediment 1+ Urine Bacteria Few (2-10) H (None) Ur Culture Indicated? Specimen cultured Point of care testing: Point of Care Testing Test Results Negative Urine Dip Bedside Urine Glucose Negative Bedside Urine Bilirubin - Negative Bedside Urine Ketone - Negative Urine Specific [place] 1.015 Bedside Urine Occult Blood +/- Bedside Urine pH 8.0 Bedside Urine Protein - Negative Bedside Urine Urobilinogen - Negative Bedside Urine Nitrite - Negative Bedside Urine Leukocytes + 70 Esterase Discharge Plan Departure Patient Disposition: Home Clinical Impression: Abdominal pain Qualifiers: Abdominal location: lower abdomen, unspecified Qualified Code(s): R10.30 - Lower abdominal pain, unspecified Discharge Date/Time: 08/14/19 16:25 Instructions: DI for Abdominal Pain-Adult Activity Restrictions/Additional Instructions: You have been diagnosed with [ bilateral flakn pain and low adominal pain. CBC and Chemistry tests were unremarkable incluing renal function test. CT test of abdomen and pelvis shows no obstructive kidney stones seen but non obstructing small right intrarenal calcifications. There was a mild ovarian vein prominence which is likely related to pelvic congestion syndrome. Appendix was not visible. Urine culture is pending for results. Will get a phone call if you need antibiotic medication treatment]. What to do: *Take your medications as directed. You can take [id number] Tylenol and or Motrin as needed for discomfort. Tylenol up to 4000 mg in 24 hour period. Ibuprofen/Motrin 400-800 mg 3 to 4 times a day as needed for discomfort and please take it with food to decrease GI irritation. *Follow up with your primary care provider in 2-3 days, call for an appointment. Let them know you were seen in the ED and that we asked you to be seen in follow up. You may need repeat ultrasound for ovarian cyst resolution which can be arranged by primary care doctor. *Return to ED if you have any new, worsening, or concerning symptoms, such as [fever, unable to tolerate fluids, chest pain, breathing difficulty or any acute concerns]. Prescriptions: No Action Atrovent HFA 17 mcg/actuation HFA aerosol inhaler 1 puff INHALATION QID PRN (Reason: shortness of breath or wheezing) Qty: 12.9 RF: 0 ibuprofen 800 MG tablet 800 mg PO TIDP PRNQty: 90 RF: 3 lisinopril 10 mg tablet 5 mg PO DAILY Qty: 30 RF: 0 Referrals: Evelina Hurtado MD [Primary Care Provider] -
== END 2019-08-14 16:25 | disposition home or self-care (01) ==
PROVIDERS: Emergency Medicine; Emergency Provider Nurse Practitioner Family; PCP Student in an Organized Health Care Education/Training Program
DX: R10.30 Lower abdominal pain, unspecified (principal); M54.5 Low back pain; R11.0 Nausea
CPT/HCPCS: 36415; 74177; 80053; 81003; 81015; 81025; 83690; 85025; 87077; 87086; 87186; 96361; 96374; 96375; 99284; J1885; J2405; Q9967

== ENCOUNTER → 2021-11-22 18:45 | Outpatient (CLI) | payer BC, OTHER, MEDICAID, SELFPAY ==
--- NOTE | 2021-11-22 18:49 | DI.RAD.S_ITS ---
PROCEDURE: XR ANKLE RT MIN 3V INDICATIONS: heel pain TECHNIQUE: 3 views of the ankle were acquired. COMPARISON: [facility], , XR FOOT RT MIN 3V, 11/22/2021, 19:05. FINDINGS: Bones: No fractures or dislocations. Ankle mortise is normally aligned. No suspicious bony lesions. Small calcaneal spur is present. Soft tissues: No tibiotalar joint effusion. Achilles tendon appears normal. IMPRESSION: No visualized acute fracture or dislocation. However, if clinical concern and/or pain persist, short interval imaging followup in 7-10 days is recommended, as occult injury cannot be definitively excluded. Dictated by: Michelle West M.D. on 11/23/2021 at 10:36 Approved by: Michelle West M.D. on 11/23/2021 at 10:38
--- NOTE | 2021-11-22 18:49 | DI.RAD.S_ITS ---
PROCEDURE: XR FOOT RT MIN 3V INDICATIONS: heel pain TECHNIQUE: 3 views of the foot were acquired. COMPARISON: [facility], CR, XR ANKLE RT MIN 3V, 11/22/2021, 19:05. FINDINGS: Bones: No fractures or dislocations. No suspicious bony lesions. Calcaneal spur is present. Soft tissues: No tibiotalar joint effusion. Achilles tendon appears normal. IMPRESSION: Calcaneal spur. Otherwise, unremarkable. Dictated by: Michelle West M.D. on 11/23/2021 at 10:38 Approved by: Michelle West M.D. on 11/23/2021 at 10:41
== END ==
PROVIDERS: PCP Student in an Organized Health Care Education/Training Program; Referring Provider Student in an Organized Health Care Education/Training Program; Visit Provider Student in an Organized Health Care Education/Training Program
DX: M77.31 Calcaneal spur, right foot (principal); M79.671 Pain in right foot
CPT/HCPCS: 73610; 73630

== ENCOUNTER → 2022-01-18 14:04 | Outpatient (CLI) | payer OTHER, MEDICAID, SELFPAY ==
--- NOTE | 2022-01-18 | DI.RAD.S_ITS ---
PROCEDURE: XR CHEST 2V INDICATIONS: CHEST PAIN TECHNIQUE: 2 views of the chest were acquired. COMPARISON: [facility], CR, XR CHEST 2V, 06/13/2019, 9:55. FINDINGS: Surgical changes and devices: Cholecystectomy clips. Lungs and pleura: Lungs are clear. No pleural effusions or pneumothorax. Mediastinum: Mediastinal contours are normal. Heart size is normal. Bones and chest wall: No suspicious bony abnormalities. Soft tissues appear unremarkable. IMPRESSION: No acute cardiopulmonary disease process. Dictated by: Alisia Martinez MD, PhD on 01/18/2022 at 15:31 Approved by: Alisia Martinez MD, PhD on 01/18/2022 at 15:32
== END ==
PROVIDERS: PCP Student in an Organized Health Care Education/Training Program; Referring Provider Student in an Organized Health Care Education/Training Program; Visit Provider Student in an Organized Health Care Education/Training Program
DX: R07.9 Chest pain, unspecified (principal); I48.0 Paroxysmal atrial fibrillation
CPT/HCPCS: 71046; 84484; 85379

== ENCOUNTER → 2022-01-18 14:47 | Outpatient (ROUT) | payer OTHER, MEDICAID, SELFPAY ==
[2022-01-18 15:00] LABS: D Dimer < 200 ng/mL (<230)
[2022-01-18 15:11] LABS: Troponin I < 0.012 ng/mL (0.01-0.034)
== END ==
PROVIDERS: PCP Student in an Organized Health Care Education/Training Program; Visit Provider Student in an Organized Health Care Education/Training Program
DX: R07.9 Chest pain, unspecified (principal)
CPT/HCPCS: 84484; 85379

== ENCOUNTER → 2022-03-20 14:02 | Outpatient (CLI) | payer OTHER, MEDICAID, SELFPAY ==
[2022-03-20 15:14] LABS: COVID19 -Nasal RAPID Negative (Negative)
--- NOTE | 2022-03-20 15:53 | P.EN_ITS ---
Event Note Date Patient Seen: 03/20/22 Time Patient Seen: 15:53 Event Note (Rapid Response, Code, or fall): Patient presented for a non nuclear exercise stress test. Blood pressure on 3 separate readings was greater than 200/100. Patient was asymptomatic. For safety readings the exercise stress test was cancelled. Patient has been advised to contact PCP for better blood pressure control. Patient needs better blood pressure control before rescheduling exercise stress test. She is scheduled to see [facility] in the next couple of weeks. I will have the office move up her consultation appointment. Signs and symptoms that would warrant her going to the ER have been reviewed.
== END ==
PROVIDERS: PCP Student in an Organized Health Care Education/Training Program; Referring Provider Family Medicine; Visit Provider Family Medicine
DX: R07.9 Chest pain, unspecified (principal); Z20.822 Contact with and (suspected) exposure to COVID-19
CPT/HCPCS: 87635

== ENCOUNTER → 2022-04-04 11:41 | Outpatient (CLI) | payer OTHER, MEDICAID, SELFPAY ==
[2022-04-04 14:42] LABS: Thyroid Stimulating Hormone 0.647 uIU/mL (0.47-4.68)
[2022-04-04 16:14] LABS: BUN Creatinine Ratio 12.9 (6-22); Blood Urea Nitrogen 12 mg/dL (7-17); Calcium 9.5 mg/dL (8.4-10.2); Carbon Dioxide 27 mmol/L (22-32); Chloride 100 mmol/L (98-107); Estimated Glomerular Filt Rate > 60 mL/min (>60); Glucose 86 mg/dL (70-100); HEMOLYSIS < 15 (0-50); Magnesium 1.7 mg/dL (1.6-2.3); Potassium 3.9 mmol/L (3.4-5.1); Sodium 137 mmol/L (137-145)
[2022-04-09 08:26] LABS: Metanephrine,Plasma 24.4 pg/mL (0.0-88.0)
[2022-04-13 05:51] LABS: Aldosterone/Renin Activity Rat 12.2 (0.0-30.0); Plama Renin, LC/MS/MS 2.757 ng/mL/hr (0.167-5.380)
== END ==
PROVIDERS: PCP Family Medicine; Referring Provider Nurse Practitioner Family; Visit Provider Nurse Practitioner Family
DX: I10 Essential (primary) hypertension (principal); R00.2 Palpitations
CPT/HCPCS: 36415; 80048; 82088; 83735; 83835; 84244; 84443

== ENCOUNTER 2022-05-01 19:09 | Emergency (ER) | payer OTHER, MEDICAID, SELFPAY ==
[2022-05-01 19:45] VITALS: BP 183/107; PULSE 85; RESP 18; TEMP 36.4; O2SAT 100; BMI 35.5
--- NOTE | 2022-05-01 19:51 | DI.RAD.S_ITS ---
PROCEDURE: XR FOOT LT MIN 3V INDICATIONS: running, heard crack swelling to medial arch, pain up TECHNIQUE: 3 views of the foot were acquired. COMPARISON: [facility], CR, XR FOOT RT MIN 3V, 11/22/2021, 19:05. FINDINGS: Bones: No fractures or dislocations. There are small plantar and posterior calcaneal enthesophytes. No suspicious bony lesions. Soft tissues: No tibiotalar joint effusion. Achilles tendon appears normal. IMPRESSION: 1. No fracture or dislocation. Dictated by: Abran Seth M.D. on 05/01/2022 at 20:46 Approved by: Abran Seth M.D. on 05/01/2022 at 20:50
[2022-05-01] MEDS: IBUPROFEN 400 MG TABLET 800 MG PO (19:55)
--- NOTE | 2022-05-01 22:21 | ED.LOWEXIN ---
HPI - Extremity Injury (Lower) General Chief Complaint: Extremity Injury, Lower Stated Complaint: Running, [place] crack, Extreme pain Time Seen by Provider: 05/01/22 22:12 Source: patient Mode of arrival: Wheelchair History of Present Illness HPI Narrative: Patient is a 36-year-old female who is here for evaluation of left foot pain and injury. Patient states she was wearing a pair of cowboy boots. She was running and felt a crack on the inside of her left foot and now has discomfort in the area. Also states there is some swelling to her foot. She is had quite a bit of difficulty walking because of the discomfort. No prior injuries she did try to support the area with KT tape which she states did seem to help the symptoms somewhat. Related Data Previous Rx's Medication Instructions Recorded ibuprofen 800 mg tablet 800 mg PO TIDP PRN #90 tabs 11/08/17 ipratropium bromide 17 1 puff inhalation QID PRN 10/21/18 mcg/actuation HFA aerosol inhaler shortness of breath or wheezing (Atrovent HFA) #12.9 grams lisinopril 10 mg tablet 5 mg PO DAILY #30 tabs 03/31/19 Allergies Allergy/AdvReac Type Severity Reaction Status Date / Time morphine [MORPHINE] Allergy Severe swelling, Verified 03/31/19 16:09 and rash Review of Systems Constitutional Constitutional: Reports system reviewed and no additional complaints, except as documented Musculoskeletal Musculoskeletal: Reports system reviewed and no additional complaints, except as documented Integumentary/Breasts Skin/Breast: Reports system reviewed and no additional complaints, except as documented Neurologic Neurologic: Reports system reviewed and no additional complaints, except as documented Patient History Medical History NAFLD (nonalcoholic fatty liver disease) PCOS (polycystic ovarian syndrome) Sponge kidney Social History Smoking Status: Never smoker Smoking Status: Never smoker alcohol intake frequency: 0-2 drinks per day Substance Use Type: does not use Exam Initial Vital Signs Initial Vital Signs: Vital Signs Temperature 97.5 F L 05/01/22 19:45 Pulse Rate 85 05/01/22 19:45 Respiratory Rate 18 05/01/22 19:45 Blood Pressure 183/107 H 05/01/22 19:45 Pulse Oximetry 100 05/01/22 19:45 Oxygen Delivery Method 05/01/22 19:45 Resp Effort & Inspection: normal respiratory effort Cardio Pulses: dorsalis pedis present on the left Skin General: no rashes or lesions noted Neuro Sensory Exam: no sensory deficits noted Extrem Other: Patient has no proximal tibia/fibula discomfort. No calf tenderness. No tenderness along the mediolateral malleolus. No tenderness along the 5th metatarsal. No tenderness along the Lisfranc joint. Her toes are unremarkable. Patient does seem to fairly pinpoint tenderness along the medial aspect of the right hindfoot. There is potentially a small swelling in this area. She also has some tenderness along the plantar fascia but does not seem to be the area of focal discomfort. Course Orders Ordered: ED Orders 05/01/22 19:51 XR foot LT min 3V Stat Discontinued Medications Ibuprofen (Ibuprofen 400 Mg Tablet) 800 mg PO NOW ONE Stop: 05/01/22 19:52 Last Admin: 05/01/22 19:55 Dose: 800 mg Documented By: VANE Vital Signs Vital signs: Vital Signs - 8 hr 05/01/22 19:45 Temperature 97.5 F L Pulse Rate 85 Respiratory Rate 18 Blood Pressure 183/107 H Pulse Oximetry 100 Oxygen Delivery Method Room Air MDM - Extremity Injury (Lower) Imaging Data Extremity x-ray #1: Radiologist's Impression: [address] [address] XRay Report Signed Patient: Kathleen Landrum MR#: [id number] : 1985 Acct:[id number] Age/Sex: 36 / F Date of Service: 05/01/22 Loc: ED Accession Number: [id number] ?? Procedure: XR foot LT min 3V Ordering Provider: Sylvester Causey D.O. PROCEDURE:? XR FOOT LT MIN 3V ? INDICATIONS:? running, heard crack swelling to medial arch, pain up ? TECHNIQUE:? 3 views of the foot were acquired.? ? [facility]. ? FINDINGS:? ? Bones:? No fractures or dislocations.? There are small plantar and posterior calcaneal enthesophytes.? No suspicious bony lesions.? ? Soft tissues:? No tibiotalar joint effusion.? Achilles tendon appears normal.? ? ? IMPRESSION:? ? 1. No fracture or dislocation.? ? Dictated by: Abran Seth M.D. on 05/01/2022 at 20:46 ? ? Approved by: Abran Seth M.D. on 05/01/2022 at 20:50 MDM Narrative Medical decision making narrative: Neurovascularly intact. No fractures nor dislocations on the x-rays. Fairly pinpoint tenderness to palpation along the medial aspect of the right hindfoot. I did discuss this with the patient. I do suspect soft tissue injury. Potentially ligamentous injury between the calcaneus and the midfoot bones. No indication for advanced radiologic studies such as an MRI today. Patient was given crutches for comfort. Recommended conservative treatment for now and if her symptoms do not improve next couple days will have her follow up with her primary doctor so they can discuss further evaluation and treatment. Patient was given return precautions. She expressed understanding and agreement. Discharge Plan Departure Patient Disposition: Home Clinical Impression: Injury of foot, left Instructions: How to Use Crutches, How To Perform RICE (Rest, Ice, Compress, Elevate), How to Apply an Elastic Wrap on Ankle Activity Restrictions/Additional Instructions: There were no fractures noted on the x-rays you can walk on your left foot as tolerated. Use the crutches in the elastic bandage like we discussed. You can take Tylenol/ibuprofen for any discomfort. Contact your primary doctor for a follow-up. Return to the emergency department for any new or worsening symptoms. Prescriptions: No Action Atrovent HFA 17 mcg/actuation HFA aerosol inhaler 1 puff INHALATION QID PRN (Reason: shortness of breath or wheezing) Qty: 12.9 0RF Rx Instructions: administer with spacer ibuprofen 800 MG tablet 800 mg PO TIDP PRNQty: 90 3RF lisinopril 10 mg tablet 5 mg PO DAILY Qty: 30 0RF Referrals: Divine Gonsalez MD [Primary Care Provider] - Visit Report Forms: Patient Portal/API
== END 2022-05-01 22:39 | disposition home or self-care (01) ==
PROVIDERS: Emergency Provider Emergency Medicine; PCP Family Medicine
DX: S99.922A Unspecified injury of left foot, initial encounter (principal); X58.XXXA Exposure to other specified factors, initial encounter
CPT/HCPCS: 73630; 99283

== ENCOUNTER → 2022-05-18 09:04 | Outpatient (CLI) | payer OTHER, SELFPAY ==
--- NOTE | 2022-05-18 | DI.MRI.S_ITS ---
PROCEDURE: MR ANKLE LT WO CON INDICATIONS: STRAIN OF MUSCLE AND TENDON AT ANKLE AND FOOT TECHNIQUE: Noncontrast sagittal T1 spin echo and T2 fast spin echo with fat saturation, axial proton density fast spin echo and T2 fast spin echo with fat saturation, coronal T1 spin echo and T2 fast spin echo with fat saturation through the ankle/hindfoot. COMPARISON: [facility], CR, XR FOOT LT MIN 3V, 05/01/2022, 19:52. FINDINGS: Image quality: Excellent. Bones and joints: No bone marrow contusions or fractures. No hindfoot coalitions. No osteochondral injuries of the talar dome. Medial structures: Increased signal within the fibers of deltoid ligament is most likely secondary to a prior low-grade sprain. The spring ligament components are grossly intact. The posterior tibialis, flexor digitorum longus, and flexor hallucis longus tendons are intact. The posterior tibial neurovascular bundle appears normal within the tarsal tunnel, without extrinsic mass effect. Lateral structures: The anterior talofibular ligament is mildly indistinct and demonstrates intermediate signal intensity, consistent with a prior moderate grade sprain. Remote prior low-grade sprain of the calcaneofibular ligament. The posterior talofibular ligament appears to be intact. The anterior and posterior tibiofibular ligaments are intact. Mild peroneus brevis and longus tendinosis and tenosynovitis. The sinus tarsi demonstrates normal fatty signal. Anterior structures: The tibialis anterior, extensor hallucis longus, and extensor digitorum longus tendons appear intact. The dorsal talonavicular ligament appears intact. Posterior and plantar structures: Mild edema and Kager's fat pad may indicate peritenonitis. The Achilles tendon is otherwise intact. There is thickening of the proximal plantar fascia with focal intrasubstance fluid signal intensity at the origin and surrounding soft tissue and mild osseous edema. No calcaneal fracture. No abductor digiti quinti muscle atrophy to suggest [place]ley neuropathy. IMPRESSION: 1. Partial tearing at the origin of the plantar fascia with surrounding soft tissue and osseous edema. No acute calcaneal fracture. Findings are superimposed on chronic fasciitis. 2. Mild Achilles peritenonitis. 3. Chronic grade 2 sprain of the anterior talofibular ligament and grade 1 sprain of the calcaneofibular ligament. 4. Mild peroneus brevis and longus tendinosis and tenosynovitis. 5. Chronic low-grade sprain of the deltoid ligament. Dictated by: Juan Watson M.D. on 05/18/2022 at 12:45 Approved by: Juan Watson M.D. on 05/18/2022 at 12:51
== END ==
PROVIDERS: PCP Family Medicine; Referring Provider Podiatrist; Visit Provider Podiatrist
DX: S96.912A Strain of unspecified muscle and tendon at ankle and foot level, left foot, initial encounter (principal); S93.492A Sprain of other ligament of left ankle, initial encounter; S93.412A Sprain of calcaneofibular ligament of left ankle, initial encounter; S93.422A Sprain of deltoid ligament of left ankle, initial encounter; M76.62 Achilles tendinitis, left leg; M72.2 Plantar fascial fibromatosis; X58.XXXA Exposure to other specified factors, initial encounter
CPT/HCPCS: 73721

== ENCOUNTER → 2022-05-23 13:50 | Outpatient (CLI) | payer OTHER, MEDICAID, SELFPAY ==
--- NOTE | 2022-05-23 13:51 | DI.ECHO.S_ITS ---
[facility] +---------+ : : [address] : : : : [address] : : : : Phone: [phone]+ Echocardiogram Report + + :Name: CLAYTON ISIDRO Study Date: 05/23/2022 Height: 61 in : :[facility] ReadingLocation: Weight: 185 lb: : Gender: Female BSA: 1.8 m2 : :: 1985 Age: 37 yrs : :Reason For Study: CHEST PAIN : :Ordering Physician: OLIVIER, : :DEJAH Performed By: Sara Duke : :Referring: DEJAH AGUAYO : + + Interpretation Summary Patient's blood pressure at beginning of exam was 156/116mmHg, and blood pressure at end of exam was 177/119mmHg The left ventricle is normal in size. There is mild concentric left ventricular hypertrophy. The ejection fraction is estimated to be 55-60%. The right ventricle is normal in size and function. No significant valvular pathology seen. The IVC is of normal diameter and collapses greater than 50% with a sniff. This suggests a low right atrial pressure of 3 mm Hg. Procedure: A two-dimensional transthoracic echocardiogram with color flow and Doppler was performed. The study quality was technically adequate. There is no prior echocardiogram noted for this patient. The patient was in sinus rhythm with heart rates between 78-92 bpm during the exam. Left Ventricle: The left ventricle is normal in size. There is mild concentric left ventricular hypertrophy. A false chord is noted (normal variant). There is no thrombus. The ejection fraction is estimated to be 55- 60%. There are no focal wall motion abnormalities. Diastolic parameters suggest a relaxation abnormality of the left ventricle, consistent with probable normal filling pressures. Right Ventricle: The right ventricle is normal in size and function. Atria: The left atrial size is normal. Right atrial size is normal. There is no Doppler evidence for an interatrial shunt. Mitral Valve: The mitral valve is normal in structure and function. There is trace mitral regurgitation. Aortic Valve: The aortic valve is not well visualized. The aortic valve opens well. There is no aortic valve stenosis. No aortic regurgitation is present. Tricuspid Valve: The tricuspid valve is normal in structure and function. There is trace tricuspid regurgitation. Pulmonary artery pressures cannot be estimated because of the lack of a measurable TR jet velocity. Pulmonic Valve: The pulmonic valve leaflets are thin and pliable; valve motion is normal. There is trace pulmonic regurgitation. Great Vessels: The aortic root is normal size. The dimensions of the ascending aorta are normal. The IVC is of normal diameter and collapses greater than 50% with a sniff. This suggests a low right atrial pressure of 3 mm Hg. Pericardium/ Pleura There is no pericardial effusion. There is an anterior echo-free space consistent with a fat pad. There is no pleural effusion. MMode/2D Measurements & Calculations LVIDd: 4.2 cm LVOT diam: 2.1 cm LVIDs: 2.7 cm Ao root diam: 2.7 cm FS: 35.4 % asc Aorta Diam: 3.1 cm IVSd: 1.1 cm Ao Arch Diam (Prox Trans): 2.7 cm LVPWd: 0.81 cm LV fonseca. diameter/BSA (cm/m^2): 2.3 LV sys. diameter/BSA (cm/m^2): 1.5 LA A2 area: 13.9 cm2 RA long axis: 4.1 cm LA A4 area: 14.5 cm2 RA area: 12.2 cm2 LA length (vol): 4.6 cm RA vol: 31.0 ml LA vol: 37.2 ml RA : 16.9 ml/m2 LA vol index: 20.3 ml/m2 IVC diam: 1.4 cm RVD1 (basal): 3.0 cm RVD2 (mid): 2.5 cm TAPSE: 2.0 cm Doppler Measurements & Calculations Ao V2 max: 103.2 cm/sec LVOT Max Anders: 78.2 cm/sec Ao V2 mean: 73.8 cm/sec LV V1 max P.4 mmHg Ao max P.3 mmHg LV V1 VTI: 13.6 cm Ao mean P.4 mmHg PAUL(I,D): 2.4 cm2 Ao V2 VTI: 20.5 cm PAUL(V,D): 2.7 cm2 sev ratio: 0.66 PAUL indexed to BSA (cm^2/m^2): 1.3 MV E max anders: 46.6 cm/sec PA V2 max: 81.1 cm/sec MV A max anders: 62.3 cm/sec PA V2 mean: 49.5 cm/sec MV E/A: 0.75 PA mean P.2 mmHg Med Peak E' Anders: 5.5 cm/sec PA pr(Accel): 56.7 mmHg E/E' med: 8.4 Lat Peak E' Anders: 8.4 cm/sec E/E' lat: 5.6 E/e' average: 7.0 MV dec time: 0.23 sec SV(OT): 48.9 ml Reading Physician:04:53 PM
[2022-05-23 15:10] LABS: COVID19 -Nasal RAPID Negative (Negative)
--- NOTE | 2022-05-23 17:51 | DI.NM.S_ITS ---
DATE OF SERVICE: 05/23/2022 PROCEDURE: Exercise stress test. INDICATION: Chest pain, palpitation, hypertension. CARDIAC STRESS: The patient underwent exercise stress test under the supervision of an attending staff using standard Iban protocol. The patient walked on Iban protocol for 6 minutes and 05 seconds. The patient had pain in the ankle. It was discontinued. Her baseline blood pressure was 150/100 and peak blood pressure 180/115 mmHg, suggestive of hypertensive blood pressure response. Baseline rhythm was sinus. During stress, no convincing ischemic changes or significant arrhythmias seen. Achieved 7 METs of workload. VIDAL positive 34 percent. The patient had left-sided chest discomfort, which on a scale of 1 to 10, 3 in intensity, and shortness of breath, which got improved in recovery. CONCLUSION: Exercise stress test is negative for inducible ischemia or any significant arrhythmias. With chest pain, there were no ischemic electrocardiographic changes. Baseline blood pressure 150/100 and peak blood pressure 180/115 mmHg, suggestive of hypertensive blood pressure response. Diminished exercise tolerance with functional aerobic impairment of positive 34 percent and 7 metabolic equivalents of workload. Overall, low-risk exercise stress test. Kathleen Landrum - AMARILIS/janeth/lc doc#: [id number]/job#: [id number] dd: 05/23/2022 17:11:00 dt: 05/23/2022 17:26:00 DICTATING /COPIES TO: Simone Banuelos MD COPIES MNE: GUANACO;
== END ==
PROVIDERS: PCP Family Medicine; Referring Provider Internal Medicine Cardiovascular Disease; Visit Provider Internal Medicine Cardiovascular Disease
DX: R07.89 Other chest pain (principal); R00.2 Palpitations; I10 Essential (primary) hypertension; Z20.822 Contact with and (suspected) exposure to COVID-19
CPT/HCPCS: 87635; 93017; 93306

== ENCOUNTER → 2022-12-25 15:31 | Outpatient (CLI) | payer OTHER, SELFPAY | PROVIDERS: PCP Family Medicine; Visit Provider Nurse Practitioner Family | DX: J02.9 Acute pharyngitis, unspecified (principal) | CPT/HCPCS: 87070 ==

== ENCOUNTER 2024-03-13 17:42 | Emergency (ER) | payer OTHER, SELFPAY ==
[2024-03-13] VITALS (9 sets, daily range): BP systolic 165–180; BP diastolic 98–112; PULSE 75–97; RESP 15–23; TEMP 37; O2SAT 98–99; BMI 35.3
--- NOTE | 2024-03-13 18:00 | DI.RAD.S_ITS ---
PROCEDURE: XR CHEST 1V INDICATIONS: chest pain TECHNIQUE: One view of the chest was acquired. COMPARISON: [facility], CR, XR CHEST 2V, 01/18/2022, 13:54. [facility], CR, XR CHEST 2V, 06/13/2019, 9:55. FINDINGS: Surgical changes and devices: None. Lungs and pleura: Lungs are clear. No pleural effusions or pneumothorax. Mediastinum: Mediastinal contours appear normal. Heart size is normal. Bones and chest wall: No suspicious bony lesions. Overlying soft tissues appear unremarkable. IMPRESSION: No acute cardiopulmonary abnormality is seen. Dictated by: Rush Joy M.D. on 03/13/2024 at 18:52 Approved by: Rush Joy M.D. on 03/13/2024 at 18:52
--- NOTE | 2024-03-13 18:00 | EKG_ITS ---
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
[2024-03-13 18:15] LABS: Add Manual Diff / Slide Review NO; Basophils Absolute Auto 100 /uL (0-100); Eosinophils Absolute Auto 100 /uL (0-450); Eosinophils Percent Auto 1.5 % (2-4); Hematocrit 37.9 % (36-46); Lymphocytes Absolute Auto 2000 /uL (1100-4500); Mean Corpuscular HGB Conc 34.4 % (30-36); Mean Corpuscular Hemoglobin 29.6 PG (26-34); Mean Corpuscular Volume 86.2 fL (80-100); Monocytes Absolute Auto 600 /uL (0-900); Monocytes Percent Auto 7.4 % (3-14); Neutrophils Absolute Auto 5600 /uL (1500-7000); Neutrophils Percent Auto 66.1 % (50-75); Platelet Count 265 X10^3/uL (150-400); Red Blood Cell Count 4.39 X10^6/uL (4.0-5.2); Red Cell Distribution Width 12.6 % (11.6-14.8); White Blood Cell Count 8.5 X10^3/uL (4.5-11.0)
[2024-03-13 18:25] LABS: Alanine Aminotransferase 22 IU/L (<35); Albumin 4.4 g/dL (3.5-5.0); Albumin Globulin Ratio 1.5 (1.0-2.8); Alkaline Phosphatase 87 U/L (38-126); Aspartate Aminotransferase 25 IU/L (14-36); BUN Creatinine Ratio 12.2 (6-22); Bilirubin Total 0.5 mg/dL (0.2-1.3); Blood Urea Nitrogen 11 mg/dL (7-17); Calcium 9.4 mg/dL (8.4-10.2); Carbon Dioxide 20 mmol/L (22-32); Chloride 108 mmol/L (98-107); Creatine Kinase 224 U/L (30-135); Estimated Glomerular Filt Rate > 60 mL/min (>60); Globulin 2.9 g/dL (1.7-4.1); Glucose 95 mg/dL (70-100); HEMOLYSIS < 15 (0-50); Lipase 93 U/L (23-300); Magnesium 1.7 mg/dL (1.6-2.3); Potassium 3.9 mmol/L (3.4-5.1); Sodium 137 mmol/L (137-145); Total Protein 7.3 g/dL (6.3-8.2)
[2024-03-13 18:37] LABS: Troponin I < 0.012 ng/mL (0.01-0.034)
--- NOTE | 2024-03-13 19:28 | ED_ITS ---
HPI - General Adult General Chief complaint: Hypertension Stated complaint: chest px, sob, HBP sent by EMT Time Seen by Provider: 03/13/24 17:57 Source: patient Mode of arrival: Ambulatory History of Present Illness HPI narrative: Patient is a 38-year-old female. History of high blood pressure although she is not currently taking any blood pressure medicines because of issues with insurance. Stated that last evening she started to have pain in the right side of her abdomen. The pain has since resolved. She denies any urinary symptoms. No change in bowel habits. No vomiting. No fevers. Stated that earlier today she started to develop pain in the right side of her chest and to her right armpit. She took her blood pressure and it was elevated. She was advised to come to the emergency department for further evaluation. She states the pain in the right side of her chest in the right armpit are not reproduced with palpation or movement. No skin changes. Related Data Previous Rx's Medication Instructions Recorded ibuprofen 800 mg tablet 800 mg PO TIDP PRN #90 tabs 11/08/17 lisinopril 10 mg tablet 5 mg (1/2 x 10 mg) PO DAILY #30 03/31/19 tabs cyclobenzaprine 5 mg tablet 5 mg PO TID PRN muscle spasm #20 03/22/23 tabs Allergies Allergy/AdvReac Type Severity Reaction Status Date / Time morphine [MORPHINE] Allergy Severe swelling, Verified 03/13/24 17:56 and rash Penicillins Allergy Mild Rash Verified 03/13/24 17:56 Review of Systems Review of Systems ROS Unobtainable: All systems reviewed & are unremarkable except as noted in HPI and below Patient History Medical History Sponge kidney NAFLD (nonalcoholic fatty liver disease) PCOS (polycystic ovarian syndrome) Social History Smoking Status: Never smoker Smoking Status: Never smoker alcohol intake frequency: holidays/special occasions only Substance Use Type: does not use Exam Initial Vital Signs Initial Vital Signs: Vital Signs Pulse Rate 97 H 03/13/24 17:54 Respiratory Rate 22 03/13/24 17:54 Pulse Oximetry 98 03/13/24 17:54 Const General: cooperative, comfortable and No ill appearing [facility] Head: normal to inspection and normocephalic Chest Chest: No crepitus and No tenderness Resp Effort & Inspection: normal respiratory effort Auscultation: clear to auscultation bilaterally Cardio Rate: regular rate GI Inspection: normal to inspection and non-distended Palpation: soft, No firm, No rigid and No tender Skin General: no rashes or lesions noted Neuro General: patient alert, patient awake, patient oriented x3 and moves all extremities Extrem General: capillary refill normal Course Orders Ordered: ED Orders 03/13/24 18:00 XR chest 1V Stat EKG-12 Lead Stat 03/13/24 18:02 Complete Blood Count AUTO DIFF Stat Comprehensive Metabolic Panel Stat Lipase Stat Magnesium Stat Troponin & CK Cardiac Panel Stat Discontinued Medications Aspirin (Aspirin 81 Mg Chew Tab) 324 mg PO NOW ONE Stop: 03/13/24 18:01 Last Admin: 03/13/24 18:01 Dose: Not Given Documented By: REY Vital Signs Vital signs: Vital Signs - 8 hr 03/13/24 17:54 03/13/24 17:55 03/13/24 17:55 Temperature Pulse Rate 97 H 95 H Respiratory Rate 22 21 Blood Pressure 167/104 H Pulse Oximetry 98 98 Oxygen Delivery Method 03/13/24 17:56 03/13/24 18:00 03/13/24 18:00 Temperature 98.6 F Pulse Rate 95 H 95 H Respiratory Rate 15 23 Blood Pressure 167/104 H 165/101 H Pulse Oximetry 99 98 Oxygen Delivery Method Room Air 03/13/24 18:10 03/13/24 18:10 03/13/24 18:15 Temperature Pulse Rate 84 95 H Respiratory Rate 17 19 Blood Pressure 169/109 H Pulse Oximetry 98 98 Oxygen Delivery Method 03/13/24 18:15 03/13/24 18:30 03/13/24 18:30 Temperature Pulse Rate 96 H Respiratory Rate 18 Blood Pressure 178/106 H 178/110 H Pulse Oximetry 99 Oxygen Delivery Method 03/13/24 18:45 03/13/24 18:45 03/13/24 19:44 Temperature Pulse Rate 92 H 75 Respiratory Rate 15 16 Blood Pressure 180/112 H 177/98 H Pulse Oximetry 98 98 Oxygen Delivery Method Room Air Medical Decision Making Lab Data Lab results reviewed: Yes I reviewed the patient's lab results. 03/13/24 18:02 03/13/24 18:02 Labs: Lab Results 03/13/24 Range/Units 18:02 WBC 8.5 (4.5-11.0) X10^3/uL RBC 4.39 (4.0-5.2) X10^6/uL Hgb 13.0 (12.0-16.0) g/dL Hct 37.9 (36-46) % MCV 86.2 (80-100) fL MCH 29.6 (26-34) PG MCHC 34.4 (30-36) % RDW 12.6 (11.6-14.8) % Plt Count 265 (150-400) X10^3/uL Neut % (Auto) 66.1 (50-75) % Lymph % (Auto) 24.0 L (25-40) % [place] % (Auto) 7.4 (3-14) % Eos % (Auto) 1.5 L (2-4) % Baso % (Auto) 1.0 (0-2) % Neut # (Auto) 5600 (5870-8463) /uL Lymph # (Auto) 2000 (0842-6035) /uL [place] # (Auto) 600 (0-900) /uL Eos # (Auto) 100 (0-450) /uL Baso # (Auto) 100 (0-100) /uL Sodium 137 (137-145) mmol/L Potassium 3.9 (3.4-5.1) mmol/L Chloride 108 H (98-107) mmol/L Carbon Dioxide 20 L (22-32) mmol/L BUN 11 (7-17) mg/dL Creatinine 0.90 (0.52-1.04) mg/dL Estimated GFR > 60 (>60) mL/min BUN/Creatinine Ratio 12.2 (6-22) Glucose 95 (70-100) mg/dL Calcium 9.4 (8.4-10.2) mg/dL Magnesium 1.7 (1.6-2.3) mg/dL Total Bilirubin 0.5 (0.2-1.3) mg/dL AST 25 (14-36) IU/L ALT 22 (<35) IU/L Alkaline Phosphatase 87 (38-126) U/L Total Creatine Kinase 224 H (30-135) U/L Troponin I < 0.012 (0.01-0.034) ng/mL Total Protein 7.3 (6.3-8.2) g/dL Albumin 4.4 (3.5-5.0) g/dL Globulin 2.9 (1.7-4.1) g/dL Albumin/Globulin Ratio 1.5 (1.0-2.8) Lipase 93 (23-300) U/L Imaging Data Chest x-ray: Radiologist's Impression: PROCEDURE: XR CHEST 1V INDICATIONS: chest pain TECHNIQUE: One view of the chest was acquired. COMPARISON: [facility], CR, XR CHEST 2V, 01/18/2022, 13:54. [facility], CR, XR CHEST 2V, 06/13/2019, 9:55. FINDINGS: Surgical changes and devices: None. Lungs and pleura: Lungs are clear. No pleural effusions or pneumothorax. Mediastinum: Mediastinal contours appear normal. Heart size is normal. Bones and chest wall: No suspicious bony lesions. Overlying soft tissues appear unremarkable. IMPRESSION: No acute cardiopulmonary abnormality is seen. ECG Data Attestation: I personally reviewed and interpreted this ECG as follows: Interpretation: Sinus rhythm Ventricular rate is 79 Normal axis Normal QRS Normal QTC No ST T wave changes MDM Narrative Medical decision making narrative: Troponins are negative. Low risk heart score. Chest x-ray is unremarkable. No skin changes concerning for zoster. Nonischemic EKG. Low suspicion for pneumonia. I did discuss the lack of a definitive diagnosis with the patient although low suspicion that it is a emergent condition. Will discharge patient home with return precautions. She expressed understanding and agreement with plan. 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 You do need to follow up with your primary doctor with regarding your blood pressure and also your chest pain today to discuss the indications for a stress test. Continue to take your blood pressure at home and record these results. Return to the emergency department for new or worsening symptoms. Prescriptions: No Action cyclobenzaprine 5 mg tablet 5 mg PO TID PRN (Reason: muscle spasm) Qty: 20 0RF ibuprofen 800 MG tablet 800 mg PO TIDP PRNQty: 90 3RF lisinopril 10 mg tablet 5 mg PO DAILY Qty: 30 0RF Referrals: Divine Gonsalez MD [Primary Care Provider] - Stand Alone Forms: Patient Portal/API
== END 2024-03-13 19:46 | disposition home or self-care (01) ==
PROVIDERS: Emergency Provider Emergency Medicine; PCP Family Medicine
DX: R07.9 Chest pain, unspecified (principal); I10 Essential (primary) hypertension
CPT/HCPCS: 36415; 71045; 80053; 82550; 83690; 83735; 84484; 85025; 93005; 99283; 99284

== ENCOUNTER 2024-03-15 17:36 | Emergency (ER) | payer OTHER, SELFPAY ==
[2024-03-15] VITALS (7 sets, daily range): BP systolic 177–205; BP diastolic 100–124; PULSE 69–74; RESP 16; TEMP 37; O2SAT 97–100; BMI 35.3
[2024-03-15 18:18] LABS: Add Manual Diff / Slide Review NO; Basophils Absolute Auto 100 /uL (0-100); Basophils Percent Auto 1.2 % (0-2); Eosinophils Absolute Auto 300 /uL (0-450); Eosinophils Percent Auto 3.1 % (2-4); Hematocrit 39.7 % (36-46); Hemoglobin 13.5 g/dL (12.0-16.0); Lymphocytes Absolute Auto 2500 /uL (1100-4500); Lymphocytes Percent Auto 30.7 % (25-40); Mean Corpuscular HGB Conc 33.9 % (30-36); Mean Corpuscular Hemoglobin 29.5 PG (26-34); Mean Corpuscular Volume 86.9 fL (80-100); Monocytes Absolute Auto 700 /uL (0-900); Monocytes Percent Auto 8.2 % (3-14); Neutrophils Absolute Auto 4700 /uL (1500-7000); Neutrophils Percent Auto 56.8 % (50-75); Platelet Count 266 X10^3/uL (150-400); Red Blood Cell Count 4.57 X10^6/uL (4.0-5.2); Red Cell Distribution Width 12.7 % (11.6-14.8); White Blood Cell Count 8.2 X10^3/uL (4.5-11.0)
--- NOTE | 2024-03-15 18:29 | ED.GENADULT ---
HPI - General Adult General Chief complaint: Abdominal Pain Stated complaint: poss kidney stones Time Seen by Provider: 03/15/24 17:52 Source: patient Mode of arrival: Ambulatory History of Present Illness HPI narrative: Patient is a 38-year-old female who is here for evaluation of left-sided flank pain. States the symptoms started earlier today. She was also having blood in her urine. She has a history of kidney stones. She states this does feel like a prior stone. No vomiting. No change in bowel habits. No fevers. She has needed lithotripsy in the past for removal of stones. Related Data Previous Rx's Medication Instructions Recorded ibuprofen 800 mg tablet 800 mg PO TIDP PRN #90 tabs 11/08/17 lisinopril 10 mg tablet 5 mg (1/2 x 10 mg) PO DAILY #30 03/31/19 tabs cyclobenzaprine 5 mg tablet 5 mg PO TID PRN muscle spasm #20 03/22/23 tabs Allergies Allergy/AdvReac Type Severity Reaction Status Date / Time morphine [MORPHINE] AdvReac Severe swelling, Verified 03/15/24 17:45 and rash Penicillins AdvReac Mild Rash Verified 03/15/24 17:45 Review of Systems Review of Systems Narrative: See HPI Patient History Medical History Sponge kidney NAFLD (nonalcoholic fatty liver disease) PCOS (polycystic ovarian syndrome) Social History Smoking Status: Never smoker Smoking Status: Never smoker alcohol intake frequency: holidays/special occasions only Substance Use Type: does not use Exam Initial Vital Signs Initial Vital Signs: Vital Signs Temperature 98.6 F 03/15/24 17:45 Pulse Rate 73 03/15/24 17:45 Respiratory Rate 16 03/15/24 17:45 Blood Pressure 205/124 H 03/15/24 17:45 Pulse Oximetry 99 03/15/24 17:45 Oxygen Delivery Method Room Air 03/15/24 17:45 HENMT Head: normal to inspection and normocephalic Resp Effort & Inspection: normal respiratory effort Cardio Rate: regular rate GI Palpation: soft, No firm, No guarding and No tender Back/Spine/Pelvis Back: No CVA tenderness Skin General: no rashes or lesions noted Course Orders Ordered: ED Orders 03/15/24 18:10 Complete Blood Count AUTO DIFF Stat Comprehensive Metabolic Panel Stat Lipase Stat 03/15/24 18:28 Urine Microscopic Stat 03/15/24 18:30 CT kidney ureter bladder (KUB) Stat Discontinued Medications Ondansetron HCl (Ondansetron 4 Mg Odt Prepack) 1 bottle MISC DIRECTED ONE Stop: 03/15/24 19:29 Last Admin: 03/15/24 19:42 Dose: Not Given Documented By: SEEMA Vital Signs Vital signs: Vital Signs - 8 hr 03/15/24 17:45 03/15/24 18:28 03/15/24 18:29 Temperature 98.6 F Pulse Rate 73 Respiratory Rate 16 Blood Pressure 205/124 H 198/115 H Pulse Oximetry 99 100 Oxygen Delivery Method Room Air 03/15/24 18:29 03/15/24 18:30 03/15/24 18:30 Temperature Pulse Rate 69 74 Respiratory Rate Blood Pressure 194/106 H Pulse Oximetry 100 99 Oxygen Delivery Method 03/15/24 19:00 03/15/24 19:15 03/15/24 19:16 Temperature Pulse Rate 71 69 Respiratory Rate Blood Pressure 177/100 H Pulse Oximetry 97 99 Oxygen Delivery Method 03/15/24 19:16 Temperature Pulse Rate 70 Respiratory Rate Blood Pressure Pulse Oximetry 100 Oxygen Delivery Method Medical Decision Making Lab Data Lab results reviewed: Yes I reviewed the patient's lab results. 03/15/24 18:10 03/15/24 18:10 Labs: Lab Results 03/15/24 03/15/24 Range/Units 18:10 18:28 WBC 8.2 (4.5-11.0) X10^3/uL RBC 4.57 (4.0-5.2) X10^6/uL Hgb 13.5 (12.0-16.0) g/dL Hct 39.7 (36-46) % MCV 86.9 (80-100) fL MCH 29.5 (26-34) PG MCHC 33.9 (30-36) % RDW 12.7 (11.6-14.8) % Plt Count 266 (150-400) X10^3/uL Neut % (Auto) 56.8 (50-75) % Lymph % (Auto) 30.7 (25-40) % Branch % (Auto) 8.2 (3-14) % Eos % (Auto) 3.1 (2-4) % Baso % (Auto) 1.2 (0-2) % Neut # (Auto) 4700 (3667-5322) /uL Lymph # (Auto) 2500 (9676-0906) /uL Branch # (Auto) 700 (0-900) /uL Eos # (Auto) 300 (0-450) /uL Baso # (Auto) 100 (0-100) /uL Sodium 137 (137-145) mmol/L Potassium 3.9 (3.4-5.1) mmol/L Chloride 108 H (98-107) mmol/L Carbon Dioxide 24 (22-32) mmol/L BUN 14 (7-17) mg/dL Creatinine 0.91 (0.52-1.04) mg/dL Estimated GFR > 60 (>60) mL/min BUN/Creatinine Ratio 15.4 (6-22) Glucose 101 H (70-100) mg/dL Calcium 9.4 (8.4-10.2) mg/dL Total Bilirubin 0.4 (0.2-1.3) mg/dL AST 23 (14-36) IU/L ALT 21 (<35) IU/L Alkaline Phosphatase 68 (38-126) U/L Total Protein 7.5 (6.3-8.2) g/dL Albumin 4.2 (3.5-5.0) g/dL Globulin 3.3 (1.7-4.1) g/dL Albumin/Globulin Ratio 1.3 (1.0-2.8) Lipase 80 (23-300) U/L Urine RBC 30-100/hpf H (0-5/HPF) Urine WBC 0-1/hpf (0-5/HPF) Ur Squamous Epith Cells 0-1 /hpf (0-5/HPF) Urine Bacteria Occasional (0-1) (None) Ur Culture Indicated? Cult not indicated Vol Urine Centrifuged 10ml (spun) Point of Care Testing Test Results Negative Urine Dip Bedside Urine Glucose Negative Bedside Urine Bilirubin - Negative Bedside Urine Ketone - Negative Urine Specific [place] 1.025 Bedside Urine Occult Blood +++ Bedside Urine pH 6.0 Bedside Urine Protein +/- 15 Bedside Urine Urobilinogen - Negative Bedside Urine Nitrite - Negative Bedside Urine Leukocytes - Negative Esterase Point of care testing: Point of Care Testing Test Results Negative Urine Dip Bedside Urine Glucose Negative Bedside Urine Bilirubin - Negative Bedside Urine Ketone - Negative Urine Specific [place] 1.025 Bedside Urine Occult Blood +++ Bedside Urine pH 6.0 Bedside Urine Protein +/- 15 Bedside Urine Urobilinogen - Negative Bedside Urine Nitrite - Negative Bedside Urine Leukocytes - Negative Esterase Imaging Data CT scan - abdomen/pelvis: Radiologist's Impression: PROCEDURE: CT KIDNEY URETER BLADDER (KUB) INDICATIONS: L sided flank pain eval for stone TECHNIQUE: Axial sections were acquired from the lung bases to the pubic symphysis. Coronal and sagittal reformats were performed. For radiation dose reduction, the following was used: automated exposure control, adjustment of mA and/or kV according to patient size. COMPARISON: [facility], CT, CT ABDOMEN PELVIS W CON, 08/14/2019, 13:53. [facility], CT, KIDNEY/ URETER/BLADDER, 02/28/2016, 15:26. FINDINGS: Image quality: Diagnostic Lower chest: Lung bases are unremarkable. Left lower lobe atelectasis. Liver: Solid organs are not well evaluated without IV contrast. No contour deforming mass Gallbladder and biliary system: Cholecystectomy clips. No pathologic dilation of the biliary system Pancreas: No ductal dilation Spleen: Nonenlarged Adrenals: No discrete nodules Kidneys: Punctate nonobstructing right renal calculi are seen. There are multiple nonobstructing left renal calculi also, the largest in the mid region measuring 6 x 4 x 4 mm. There is mild fat stranding around the left ureter. There is no obstructing calcified stone identified. No significant collecting system dilation bilaterally Vessels and lymph nodes: No abdominal aortic aneurysm. No pathologic lymph nodes by size criteria. Bowel and peritoneum: No evidence of small bowel obstruction. No pathologic ascites. There are few colonic diverticula. Body wall: Tiny fat containing umbilical hernia Pelvis: Bladder is unremarkable. Reproductive organs are unremarkable on limited CT evaluation Bones: No acute or suspicious osseous finding. There are degenerative changes. IMPRESSION: Bilateral nonobstructing renal calculi. No hydronephrosis or dilated ureters bilaterally. There is mild fat stranding around the left ureter, correlate urinalysis for infection. Differential also includes a recently passed stone. [place] of stone disease is increased compared to 2019. Other findings as above. MDM Narrative Medical decision making narrative: After long discussion with the patient regarding options to include treating her symptomatically for presumptive kidney stone given her history versus obtaining a CT scan in the risks of CT scan to include exposure to radiation patient opted for the CT scan. This did not show a specific ureteral stone but did show inflammation in the left ureter and given her history and her hematuria would suspect that she has had a recently passed stone. No infection noted. No indication for antibiotics. Kidney functions unremarkable. I did discuss the CT scan with her. Patient can take Tylenol/ibuprofen. Was sent home with nausea medication. She was given return precautions. She expressed understanding and agreement. Discharge Plan Departure Patient Disposition: Home Clinical Impression: Hematuria Instructions: DI for Kidney Stones Activity Restrictions/Additional Instructions: Like we discussed your labs today are very reassuring in the CT scan and your history is consistent with someone who just recently passed a stone. You can continue to take Tylenol/ibuprofen as needed for the discomfort. The nausea medication is for your use as needed. Return to the emergency department for new symptoms. Prescriptions: No Action cyclobenzaprine 5 mg tablet 5 mg PO TID PRN (Reason: muscle spasm) Qty: 20 0RF ibuprofen 800 MG tablet 800 mg PO TIDP PRNQty: 90 3RF lisinopril 10 mg tablet 5 mg PO DAILY Qty: 30 0RF Referrals: Divine Gonsalez MD [Primary Care Provider] - Stand Alone Forms: Patient Portal/API
[2024-03-15 18:30] LABS: Alanine Aminotransferase 21 IU/L (<35); Albumin 4.2 g/dL (3.5-5.0); Albumin Globulin Ratio 1.3 (1.0-2.8); Alkaline Phosphatase 68 U/L (38-126); Aspartate Aminotransferase 23 IU/L (14-36); BUN Creatinine Ratio 15.4 (6-22); Bilirubin Total 0.4 mg/dL (0.2-1.3); Blood Urea Nitrogen 14 mg/dL (7-17); Calcium 9.4 mg/dL (8.4-10.2); Carbon Dioxide 24 mmol/L (22-32); Chloride 108 mmol/L (98-107); Estimated Glomerular Filt Rate > 60 mL/min (>60); Globulin 3.3 g/dL (1.7-4.1); Glucose 101 mg/dL (70-100); HEMOLYSIS 16 (0-50); Lipase 80 U/L (23-300); Potassium 3.9 mmol/L (3.4-5.1); Sodium 137 mmol/L (137-145); Total Protein 7.5 g/dL (6.3-8.2)
[2024-03-15 18:51] LABS: Bacteria Urine Occasional (0-1); RBC Urine 30-100/HPF (0-5/HPF); Urine Volume 10mL (spun); WBC Urine 0-1/HPF (0-5/HPF)
[2024-03-15 18:52] LABS: Culture Indicated Urine Cult Not Indicated; Squamous Epithelial Cell Urine 0-1 /HPF (0-5/HPF)
== END 2024-03-15 20:02 | disposition home or self-care (01) ==
PROVIDERS: Emergency Provider Emergency Medicine; PCP Family Medicine
DX: R31.9 Hematuria, unspecified (principal); R10.9 Unspecified abdominal pain; Z87.442 Personal history of urinary calculi
CPT/HCPCS: 36415; 74176; 80053; 81003; 81015; 81025; 83690; 85025; 99283; 99284

== ENCOUNTER → 2024-05-15 13:25 | Outpatient (CLI) | payer OTHER, SELFPAY | PROVIDERS: PCP Family Medicine; Visit Provider Nurse Practitioner Family | DX: R30.0 Dysuria (principal) | CPT/HCPCS: 87086 ==

== ENCOUNTER 2024-05-15 13:44 | Emergency (ER) | payer OTHER, SELFPAY ==
[2024-05-15 13:50] VITALS: BP 185/112; PULSE 73; RESP 13; TEMP 36.6; O2SAT 99; BMI 36.5
--- NOTE | 2024-05-15 14:42 | ED_ITS ---
HPI - Female Genitourinary General Chief complaint: Urogenital-Female Stated complaint: Passing a Kidney stone Time Seen by Provider: 05/15/24 14:18 Source: patient Mode of arrival: Ambulatory History of Present Illness HPI Narrative: Patient is a 39-year-old female history of multiple kidney stones presenting today with frequent urination and left-sided back pain. She CT noncontrast with multiple left renal calculi the largest measuring 6 x 4 x 4 mm. She reports sudden onset pain radiating from her back to her abdomen today feeling like multiple kidney stones in the past. She has not had any fever or chills. She also reports that she has been on antibiotics off and on for the last 2 months for UTI. She has had prescription for Bactrim and Macrobid last prescription was written on April 17 Related Data Previous Rx's Medication Instructions Recorded ibuprofen 800 mg tablet 800 mg PO TIDP PRN #90 tabs 11/08/17 lisinopril 10 mg tablet 5 mg (1/2 x 10 mg) PO DAILY #30 03/31/19 tabs cyclobenzaprine 5 mg tablet 5 mg PO TID PRN muscle spasm #20 03/22/23 tabs cefdinir 300 mg capsule 300 mg PO Q12H #14 caps 05/15/24 hydrocodone 5 mg-acetaminophen 325 1 tab PO Q6H PRN pain #10 tabs 05/15/24 mg tablet ondansetron 4 mg disintegrating 4 mg PO Q8H PRN nausea and 05/15/24 tablet vomiting #10 tabs Allergies Allergy/AdvReac Type Severity Reaction Status Date / Time morphine [MORPHINE] AdvReac Severe swelling, Verified 05/15/24 13:55 and rash Penicillins AdvReac Mild Rash Verified 05/15/24 13:55 Patient History Medical History (Updated 05/15/24 @ 15:12 by Soledad Dash DO) Sponge kidney NAFLD (nonalcoholic fatty liver disease) PCOS (polycystic ovarian syndrome) alcohol intake frequency: holidays/special occasions only Substance Use Type: does not use Exam Initial Vital Signs Initial Vital Signs: Vital Signs Temperature 97.9 F 05/15/24 13:50 Pulse Rate 73 05/15/24 13:50 Respiratory Rate 13 05/15/24 13:50 Blood Pressure 185/112 H 05/15/24 13:50 Pulse Oximetry 99 05/15/24 13:50 Oxygen Delivery Method Room Air 05/15/24 13:50 GENERAL: Alert 39-year-old female mildly uncomfortable and in no acute distress. HEENT: Head atraumatic,EOMI, pupils reactive, face symmetric, moist mucous membranes CARDIOVASCULAR: Regular rate and rhythm without murmurs, rubs or gallops. RESPIRATORY: Breath sounds equal bilaterally, no wheezes rales or rhonchi. ABDOMEN: Soft, nontender. Normoactive bowel sounds all 4 quadrants. No guarding or rebound. : Left CVA tenderness, no right-sided pain EXTREMITIES: Normal range of motion, no clubbing or edema. Neurovascularly intact NEUROLOGICAL: Alert and oriented x4. SKIN: Warm, dry, no laceration, no petechiae, no rashes or lesions. Course Orders Ordered: Discontinued Medications Ceftriaxone Sodium 1,000 mg/ (Sodium Chloride) 100 mls @ 200 mls/hr IV NOW ONE Stop: 05/15/24 14:43 Last Infusion: 05/15/24 15:39 Dose: Infused Documented By: Admin: 05/15/24 14:54 Dose: 200 mls/hr Documented By: ANTONIETTA Ketorolac Tromethamine (Ketorolac 30 Mg/Ml Vial) 15 mg IV NOW ONE Stop: 05/15/24 14:43 Last Admin: 05/15/24 15:01 Dose: 15 mg Documented By: ANTONIETTA Ondansetron HCl (Ondansetron 4 Mg/2 Ml Inj) 4 mg IV NOW ONE Stop: 05/15/24 14:43 Last Admin: 05/15/24 15:01 Dose: 4 mg Documented By: ANTONIETTA Vital Signs Vital signs: Vital Signs - 8 hr 05/15/24 13:50 Temperature 97.9 F Pulse Rate 73 Respiratory Rate 13 Blood Pressure 185/112 H Pulse Oximetry 99 Oxygen Delivery Method Room Air MDM - Female Genitourinary Lab Data 05/15/24 14:09 05/15/24 14:09 Labs: Lab Results 05/15/24 Range/Units 14:09 WBC 10.5 (4.5-11.0) X10^3/uL RBC 4.67 (4.0-5.2) X10^6/uL Hgb 13.4 (12.0-16.0) g/dL Hct 40.2 (36-46) % MCV 86.2 (80-100) fL MCH 28.6 (26-34) PG MCHC 33.2 (30-36) % RDW 13.9 (11.6-14.8) % Plt Count 300 (150-400) X10^3/uL Neut % (Auto) 73.4 (50-75) % Lymph % (Auto) 18.4 L (25-40) % [place] % (Auto) 6.2 (3-14) % Eos % (Auto) 1.4 L (2-4) % Baso % (Auto) 0.6 (0-2) % Neut # (Auto) 7700 H (0994-8336) /uL Lymph # (Auto) 1900 (4830-3281) /uL [place] # (Auto) 600 (0-900) /uL Eos # (Auto) 100 (0-450) /uL Baso # (Auto) 100 (0-100) /uL Sodium 134 L (137-145) mmol/L Potassium 4.1 (3.4-5.1) mmol/L Chloride 102 (98-107) mmol/L Carbon Dioxide 24 (22-32) mmol/L BUN 13 (7-17) mg/dL Creatinine 0.80 (0.52-1.04) mg/dL Estimated GFR > 60 (>60) mL/min BUN/Creatinine Ratio 16.3 (6-22) Glucose 85 (70-100) mg/dL Calcium 9.8 (8.4-10.2) mg/dL Total Bilirubin 0.6 (0.2-1.3) mg/dL AST 40 H (14-36) IU/L ALT 28 (<35) IU/L Alkaline Phosphatase 86 (38-126) U/L Total Protein 7.7 (6.3-8.2) g/dL Albumin 4.5 (3.5-5.0) g/dL Globulin 3.2 (1.7-4.1) g/dL Albumin/Globulin Ratio 1.4 (1.0-2.8) Point of Care Testing Test Results Negative MDM Narrative Medical decision making narrative: Patient 39-year-old female history of multiple kidney stones with known left- sided kidney stone presenting today with sudden onset pain. She also reports that she has a known UTI, urinalysis from walk-in clinic today does show 3+ leukocytes negative for nitrates and positive for hematuria Blood work has been reviewed CBC shows WBC of 10, CMP shows a creatinine of 0.8 with stable electrolytes Patient received Toradol Zofran and Rocephin. She has no evidence of sepsis she is afebrile without significant leukocytosis. I do suspect that she has kidney stone versus pyelonephritis. Discussed with patient repeating CT however at this time she had a CT just a couple months ago we know that she has nephrolithiasis this has pain like nephrolithiasis. We will go ahead and treat her with antibiotics, cefdinir. At this time she appears well and nontoxic. Discussion if symptoms worsen then she should return to the ED for probable repeat imaging. Both she and her understand and agree with this plan. Discharge Plan Departure Patient Disposition: Home Clinical Impression: Left nephrolithiasis, UTI (urinary tract infection) Instructions: DI for Kidney Stones, DI for Urinary Tract Infection (UTI) Activity Restrictions/Additional Instructions: *You have been diagnosed with kidney stone and UTI *What to do: At this time suspect you are passing a kidney stone.. We will treat you with pain medication and antibiotics *Continue to take medications as directed Motrin 800 mg every 8 hours for [id number] [place] 1 tablet every 6 hours if needed for severe pain Zofran 4 mg every 8 hours if needed for nausea or vomiting Cefdinir 300 mg twice a day for 7 days *Follow up with your primary care provider in 2-3 days or call [phone] *Return to ER if you should have increasing pain persistent vomiting [or] any new, worsening or concerning symptoms CONTROLLED SUBSTANCE DISCHARGE (Narcotoic/benzodiazepine/Flexeril/Phenergan) 1. You have been prescribed narcotic medications, it does have acetaminophen/Tylenol/paracetamol in it, DO NOT TAKE MORE THAN 4,00mg in 24 hours of Tylenol. TRAMADOL DOES NOT CONTAIN TYLENOL 2. Please understand that we cannot provide further refills of narcotics, benzodiazepines or controlled substances through the ED and her pain management will need to be through your provider. 3. While on these medications you cannot drive or operate heavy machinery. 4. You cannot sign legal documents or perform any duties such as this. 5. As long as you're taking opiate pain medications he should also be taking a stool softener such as Colace, Dulcolax, MiraLAX or prune juice, to help avoid constipation. Prescriptions: New hydrocodone-acetaminophen 5-325 mg tablet 1 tab PO Q6H PRN (Reason: pain) Qty: 10 0RF ondansetron 4 mg tablet,disintegrating 4 mg PO Q8H PRN (Reason: nausea and vomiting) Qty: 10 0RF cefdinir 300 mg capsule 300 mg PO Q12H Qty: 14 0RF No Action cyclobenzaprine 5 mg tablet 5 mg PO TID PRN (Reason: muscle spasm) Qty: 20 0RF ibuprofen 800 MG tablet 800 mg PO TIDP PRNQty: 90 3RF lisinopril 10 mg tablet 5 mg PO DAILY Qty: 30 0RF Referrals: Divine Gonsalez MD [Primary Care Provider] - Stand Alone Forms: Patient Portal/API
[2024-05-15 14:44] LABS: Add Manual Diff / Slide Review NO; Basophils Absolute Auto 100 /uL (0-100); Basophils Percent Auto 0.6 % (0-2); Eosinophils Absolute Auto 100 /uL (0-450); Eosinophils Percent Auto 1.4 % (2-4); Hematocrit 40.2 % (36-46); Hemoglobin 13.4 g/dL (12.0-16.0); Lymphocytes Absolute Auto 1900 /uL (1100-4500); Lymphocytes Percent Auto 18.4 % (25-40); Mean Corpuscular HGB Conc 33.2 % (30-36); Mean Corpuscular Hemoglobin 28.6 PG (26-34); Mean Corpuscular Volume 86.2 fL (80-100); Monocytes Absolute Auto 600 /uL (0-900); Monocytes Percent Auto 6.2 % (3-14); Neutrophils Absolute Auto 7700 /uL (1500-7000); Neutrophils Percent Auto 73.4 % (50-75); Platelet Count 300 X10^3/uL (150-400); Red Blood Cell Count 4.67 X10^6/uL (4.0-5.2); Red Cell Distribution Width 13.9 % (11.6-14.8); White Blood Cell Count 10.5 X10^3/uL (4.5-11.0)
[2024-05-15 14:48] LABS: Alanine Aminotransferase 28 IU/L (<35); Albumin 4.5 g/dL (3.5-5.0); Albumin Globulin Ratio 1.4 (1.0-2.8); Alkaline Phosphatase 86 U/L (38-126); Aspartate Aminotransferase 40 IU/L (14-36); BUN Creatinine Ratio 16.3 (6-22); Bilirubin Total 0.6 mg/dL (0.2-1.3); Blood Urea Nitrogen 13 mg/dL (7-17); Calcium 9.8 mg/dL (8.4-10.2); Carbon Dioxide 24 mmol/L (22-32); Chloride 102 mmol/L (98-107); Estimated Glomerular Filt Rate > 60 mL/min (>60); Globulin 3.2 g/dL (1.7-4.1); Glucose 85 mg/dL (70-100); HEMOLYSIS 23 (0-50); Potassium 4.1 mmol/L (3.4-5.1); Sodium 134 mmol/L (137-145); Total Protein 7.7 g/dL (6.3-8.2)
[2024-05-15] MEDS: cefTRIAXone 1,000 MG in SODIUM CHLORIDE 0.9% 100 ML 200 MG IV (14:54)
[2024-05-15] MEDS: ONDANSETRON 4 MG/2 ML INJ IV (15:01)
[2024-05-15] MEDS: KETOROLAC 30 MG/ML VIAL 15 MG IV (15:01)
[2024-05-15 15:22] VITALS: BP 150/85; PULSE 63; O2SAT 100
== END 2024-05-15 15:40 | disposition home or self-care (01) ==
PROVIDERS: Emergency Provider Emergency Medicine; PCP Family Medicine
DX: N39.0 Urinary tract infection, site not specified (principal); N20.0 Calculus of kidney; Z87.442 Personal history of urinary calculi; R30.0 Dysuria
CPT/HCPCS: 36415; 80053; 81025; 85025; 87077; 87086; 87186; 96365; 96375; 99284; J0696; J1885; J2405

== ENCOUNTER → 2025-01-20 07:05 | Outpatient (CLI) | payer BC, SELFPAY ==
--- NOTE | 2025-01-20 07:07 | DI.ECHO.S_ITS ---
[facility] : : [address] : : [place] : : [id number] : : Phone: [phone] Echocardiogram Report + + :Name: CLAYTON ISIDRO Study Date: 01/20/2025 Height: 61 in : :[facility] ReadingLocation: Weight: 190 lb : : Gender: Female BSA: 1.8 m2 : :: 1985 Age: 39 yrs BP: 129/92 mmHg: :Reason For Study: CARDIOMEGALY, HYPERLIPIDEMIA, HYPERTENSION : :Ordering Physician: MONA, : :SHANNAN Performed By: Sara Duke : :Referring: SHANNAN DUNN : + + Interpretation Summary The left ventricle is normal in size. Left ventricular systolic function appears normal without focal wall motion abnormalities. The ejection fraction is estimated to be 60-65%. Diastolic parameters suggest probable normal left ventricular diastolic function and normal filling pressures. The right ventricle is normal in size and function. The right ventricular systolic pressure is estimated to be at least 21 mmHg based on an estimated right atrial pressure of 3 mm Hg. Borderline left atrial enlargement. There is no significant valvular heart disease. The aortic root is normal size. Procedure: A two-dimensional transthoracic echocardiogram with color flow and Doppler was performed. The study quality was technically adequate. Comparison is made with the echocardiogram of 05/23/2022. The patient was in sinus bradycardia with heart rates between 55-77 bpm during the exam. Left Ventricle: The left ventricle is normal in size. There is normal left ventricular wall thickness. Left ventricular systolic function appears normal without focal wall motion abnormalities. The ejection fraction is estimated to be 60-65%. Diastolic parameters suggest probable normal left ventricular diastolic function and normal filling pressures. Right Ventricle: The right ventricle is normal in size and function. Atria: Borderline left atrial enlargement. Right atrial size is normal. There is no Doppler evidence for an interatrial shunt. Mitral Valve: The mitral valve leaflets appear normal. There is no evidence of stenosis, fluttering, or prolapse. There is trace mitral regurgitation. Aortic Valve: The aortic valve is trileaflet. The aortic valve opens well. There is no aortic valve stenosis. No aortic regurgitation is present. Tricuspid Valve: The tricuspid valve leaflets are thin and pliable. There is trace tricuspid regurgitation. The right ventricular systolic pressure is estimated to be at least 21 mmHg based on an estimated right atrial pressure of 3 mm Hg. Pulmonic Valve: The pulmonic valve leaflets are thin and pliable; valve motion is normal. There is trace pulmonic regurgitation. There is no significant valvular heart disease. Great Vessels: The aortic root is normal size. The dimensions of the ascending aorta are normal. The IVC is of normal diameter and collapses greater than 50% with a sniff. This suggests a low right atrial pressure of 3 mm Hg. Pericardium/ Pleura There is no pericardial effusion. There is no pleural effusion. MMode/2D Measurements & Calculations LVIDd: 4.5 cm LVOT diam: 2.0 cm LVIDs: 2.8 cm Ao root diam: 2.8 cm FS: 36.8 % asc Aorta Diam: 3.0 cm EPSS: 0.72 cm Ao Arch Diam (Prox Trans): 2.7 cm IVSd: 0.91 cm LVPWd: 0.85 cm LV fonseca. diameter/BSA (cm/m^2): 2.4 LV sys. diameter/BSA (cm/m^2): 1.5 LA A2 area: 22.3 cm2 RA long axis: 4.8 cm LA A4 area: 15.4 cm2 RA area: 13.7 cm2 LA length (vol): 4.9 cm RA vol: 33.3 ml LA vol: 59.7 ml RA : 18.0 ml/m2 LA vol index: 32.3 ml/m2 IVC diam: 1.5 cm RVD1 (basal): 3.3 cm RVD2 (mid): 2.9 cm TAPSE: 2.1 cm Doppler Measurements & Calculations Ao V2 max: 114.9 cm/sec LVOT Max Anders: 90.2 cm/sec Ao V2 mean: 73.5 cm/sec LV V1 max P.3 mmHg Ao max P.3 mmHg LV V1 VTI: 20.8 cm Ao mean P.5 mmHg PAUL(I,D): 2.7 cm2 Ao V2 VTI: 24.1 cm PAUL(V,D): 2.5 cm2 sev ratio: 0.86 PAUL indexed to BSA (cm^2/m^2): 1.5 MV E max anders: 75.8 cm/sec TR max anders: 212.5 cm/sec MV A max anders: 59.1 cm/sec TR max P.1 mmHg MV E/A: 1.3 PA V2 max: 82.2 cm/sec Med Peak E' Anders: 7.5 cm/sec PA V2 mean: 59.4 cm/sec E/E' med: 10.0 PA mean P.6 mmHg Lat Peak E' Anders: 12.2 cm/sec PA pr(Accel): 19.9 mmHg E/E' lat: 6.2 E/e' average: 8.1 MV dec time: 0.20 sec MVA(VTI): 3.1 cm2 MV V2 mean: 52.8 cm/sec SV(LVOT): 65.3 ml MV mean P.3 mmHg MV V2 VTI: 20.8 cm Reading Physician:06:13 PM
== END ==
LOC: ECHO 07:07
PROVIDERS: PCP Family Medicine; Referring Provider Family Medicine; Visit Provider Family Medicine
DX: I51.7 Cardiomegaly (principal); I10 Essential (primary) hypertension; E78.2 Mixed hyperlipidemia; R00.1 Bradycardia, unspecified
CPT/HCPCS: 93306